=== PATIENT | female | born 1990 | race Caucasian/White ===

== ENCOUNTER 2017-05-26 20:45 | Emergency (ER) | payer BC ==
[2017-05-26 21:00] VITALS: BP 130/58; PULSE 73; RESP 18; TEMP 98
[2017-05-26] MEDS ORDERED: PROPARACAINE 0.5% OPHTH DROPS 15 ML BTL BOTH EYES STA (21:24)
[2017-05-26] MEDS ORDERED: ERYTHROMYCIN 5 MG/GM OPHTH OINT 3.5 GM TUBE BOTH EYES STA (21:25)
--- NOTE | 2017-05-26 21:36 | ED ---
General Adult HPI - General Chief complaint: Eye Problems Stated complaint: Eye drainage Time Seen by Provider: 05/26/17 21:19 Source: patient, RN notes reviewed Mode of arrival: ambulatory Limitations: no limitations - History of Present Illness Initial comments: 26 her old female presents to the emergency department for a chief complaint of bilateral eye runniness. Patient states this has been going on since this morning when she woke up. Patient states her eyes also feel irritated. Patient states her eyes feel watery she also has eye "boogers." Patient does not work with children. Patient does not have kids. Patient has not been exposed to anyone with pinkeye that she knows of. Patient denies visual changes or vision loss besides for some blurriness from the eye drainage. Patient denies any scotomas or sensitivity to light. Patient denies any headache. Patient denies any trauma to the eyes or getting anything in the eyes. - Related Data Previous Rx's Medication Instructions Recorded Erythromycin Ophth Oint [Romycin 1 applic BOTH EYES Q4H 5 Days gm 05/26/17 Ophth Oint] Loratadine [Claritin] 10 mg PO DAILY #20 tab 05/26/17 Allergies Allergy/AdvReac Type Severity Reaction Status Date / Time No Known Allergies Allergy Verified 05/26/17 21:00 Review of Systems ROS Statement: Those systems with pertinent positive or pertinent negative responses have been documented in the HPI. ROS Other: All systems not noted in ROS Statement are negative. Past Medical History Past Medical History: Asthma History of Any Multi-Drug Resistant Organisms: None Reported Past Surgical History: No Surgical Hx Reported Past Psychological History: Anxiety, Depression Smoking Status: Current every day smoker Past Alcohol Use History: Rare Past Drug Use History: None Reported General Exam Limitations: no limitations General appearance: alert Head exam: Present: atraumatic, normocephalic, normal inspection Eye exam: Present: PERRL, EOMI, conjunctival injection (Bilateral erythematous eyes. Patient has clear drainage from the eyes. Patient also has mild exudate draining from the eyes.). Absent: scleral icterus, nystagmus, periorbital swelling, periorbital tenderness Pupils: Present: normal accommodation ENT exam: Present: normal exam, normal oropharynx, mucous membranes moist, TM's normal bilaterally Respiratory exam: Present: normal lung sounds bilaterally. Absent: respiratory distress, wheezes, rales, rhonchi, stridor Cardiovascular Exam: Present: regular rate, normal rhythm, normal heart sounds. Absent: systolic murmur, diastolic murmur, rubs, gallop, clicks Course Vital Signs 05/26/17 20:59 Temperature 98 F Pulse Rate 73 Respiratory 18 Rate Blood Pressure 130/58 O2 Sat by Pulse 98 Oximetry Medical Decision Making - Medical Decision Making 26 her old female says the emergency department for chief complaint of eye irritation. Patient states this has been going on since she woke up this morning. Patient states her eyes have been runny. On examination bilateral eyes appear to be red and draining clear/exudative fluid. Patient denies wearing contacts. Patient denies getting anything in the eyes or any trauma to the eyes. No visual changes besides slight blurriness from the runny eyes. This is likely bacterial conjunctivitis. She will be given erythromycin ointment. Patient states she would like to rule out corneal abrasion because of the irritation. Proparacaine drops were used to numb the eyes. Fluorescein stain was used with the Wood's lamp to rule out corneal abrasions. No abrasions seen. Patient will continue to use erythromycin ointment for 5-7 days to treat the conjunctivitis. She will return to the emergency department if symptoms worsen. She will follow up with primary care or ophthalmology in one to 2 days. Disposition Clinical Impression: Bacterial conjunctivitis Disposition: HOME SELF-CARE Condition: Good Instructions: Conjunctivitis (ED) Additional Instructions: Please use erythromycin ointment for 5-7 days. Please return to the emergency department if symptoms worsen or you begin to have visual changes. Please follow-up with primary care provider or ophthalmology in one to 2 days. Prescriptions: Erythromycin Ophth Oint [Romycin Ophth Oint] 1 applic BOTH EYES Q4H 5 Days gm Loratadine [Claritin] 10 mg PO DAILY #20 tab Referrals: Jacinto Craig DO [Primary Care Provider] - 1-2 days Karmen Hinds MD [STAFF PHYSICIAN] - 1-2 days Time of Disposition: 21:48
== END 2017-05-26 21:57 | disposition home or self-care (01) ==
LOC: EC 20:45
DX: H10.89 Other conjunctivitis (principal); F17.200 Nicotine dependence, unspecified, uncomplicated
CPT/HCPCS: 99282

== ENCOUNTER 2017-07-26 02:28 | Emergency (ER) | payer BC ==
[2017-07-26 02:36] VITALS: RESP 18
--- NOTE | 2017-07-26 03:14 | XR ---
EXAM: XR Right Hand Complete, 3 or More Views CLINICAL HISTORY: Pain TECHNIQUE: Frontal, lateral and oblique views of the right hand. COMPARISON: No relevant prior studies available. FINDINGS: Bones/joints: No acute fracture or malalignment. Soft tissues: Unremarkable. No radiopaque foreign body. IMPRESSION: No acute fracture or malalignment.
--- NOTE | 2017-07-26 03:41 | ED ---
Upper Extremity HPI - General Chief Complaint: Extremity Injury, Upper Stated Complaint: Hand and arm injury Time Seen by Provider: 07/26/17 02:40 Source: patient Mode of arrival: ambulatory Limitations: no limitations - History of Present Illness Initial Comments: 26 year-old female patient presents to the emergency department today complaining of right hand pain. Patient states that 3 weeks ago she punched a wall. States that she has been having pain and swelling over the middle MCP joint. States that it hurts when she makes a fist. States is tender over the joint. She denies any numbness or tingling to the hand or finger. Denies any previous fractures to the hand. Denies any other injuries. Patient denies any headache, neck pain, back pain, chest pain, shortness of breath, dizziness, weakness, abdominal pain, nausea, vomiting, or difficulties with bowel movements or urination. - Related Data Home Medications Medication Instructions Recorded Confirmed ARIPiprazole [Abilify] 5 mg PO 07/26/17 Allergies Allergy/AdvReac Type Severity Reaction Status Date / Time No Known Allergies Allergy Verified 05/26/17 21:00 Review of Systems ROS Statement: Those systems with pertinent positive or pertinent negative responses have been documented in the HPI. ROS Other: All systems not noted in ROS Statement are negative. Past Medical History Past Medical History: Asthma History of Any Multi-Drug Resistant Organisms: None Reported Past Surgical History: No Surgical Hx Reported Past Psychological History: Anxiety, Depression Smoking Status: Current every day smoker Past Alcohol Use History: Occasional Past Drug Use History: None Reported General Exam Limitations: no limitations General appearance: alert, in no apparent distress, other (Some well-developed, well-nourished adult female patient in no acute distress. Vital signs upon presentation are temperature 98.3F, pulse 87, respirations 18, blood pressure 123/83, pulse ox 98% on room air.) Eye exam: Present: normal appearance, PERRL, EOMI. Absent: scleral icterus, conjunctival injection, periorbital swelling ENT exam: Present: normal exam, normal oropharynx, mucous membranes moist Respiratory exam: Present: normal lung sounds bilaterally. Absent: respiratory distress, wheezes, rales, rhonchi, stridor Cardiovascular Exam: Present: regular rate, normal rhythm, normal heart sounds. Absent: systolic murmur, diastolic murmur, rubs, gallop, clicks Extremities exam: Present: full ROM, tenderness (Tenderness over the third MCP joint on the right hand.), normal capillary refill, other (Skin to the right hand is pink, warm, and dry. Cap refills less than 3 seconds. Radial pulses are 2+ and equal bilaterally.). Absent: normal inspection, pedal edema, joint swelling, calf tenderness Neurological exam: Present: alert, oriented X3, CN II-XII intact Psychiatric exam: Present: normal affect, normal mood Skin exam: Present: warm, dry, intact, normal color. Absent: rash Course Vital Signs 07/26/17 07/26/17 02:32 03:48 Temperature 98.3 F 97.8 F Pulse Rate 87 84 Respiratory 18 18 Rate Blood Pressure 123/83 126/79 O2 Sat by Pulse 98 99 Oximetry Medical Decision Making - Medical Decision Making 26 year-old female patient presented to the emergency department today for evaluation of right hand pain after punching a wall 3 weeks ago. Physical examination does reveal some swelling and enlargement of the right third MCP joint. Patient does have full range of motion and good neurovascular status. X -ray was obtained and showed no acute fractures or malalignment. We did discuss possibility of a tendinous injury or joint space abnormality. She is instructed to follow-up with the client technical specialist for further evaluation and possibly further testing. She is instructed to continue taking ibuprofen and Tylenol for pain control. Return parameters discussed in detail. She verbalizes understanding and agrees with this plan. - Radiology Data Radiology results: report reviewed, image reviewed 3 views of the right hand are obtained. Report was reviewed in its entirety. Impression by Dr. Lam shows no acute fracture or malalignment. Disposition Clinical Impression: Hand contusion, Hand sprain Disposition: HOME SELF-CARE Condition: Good Instructions: Contusion in Adults (ED), Hand Sprain (ED) Additional Instructions: Take Tylenol Motrin for pain control. Follow-up with orthopedic physician for reevaluation. Return here immediately for any new, worsening, or concerning symptoms. Is patient prescribed a controlled substance at d/c from ED?: No Referrals: Jacinto Craig DO [Primary Care Provider] - 1-2 days Slick Pino MD [Medical Doctor] - 1-2 days Time of Disposition: 03:41
[2017-07-26 03:49] VITALS: BP 126/79; PULSE 84; TEMP 97.8
== END 2017-07-26 03:49 | disposition home or self-care (01) ==
LOC: EC 02:28
DX: S63.91XA Sprain of unspecified part of right wrist and hand, initial encounter (principal); F32.9 Major depressive disorder, single episode, unspecified; F17.200 Nicotine dependence, unspecified, uncomplicated; Z79.899 Other long term (current) drug therapy; W22.8XXA Striking against or struck by other objects, initial encounter
CPT/HCPCS: 99283

== ENCOUNTER 2017-10-08 02:11 | Emergency (ER) | payer BC ==
[2017-10-08 02:19] VITALS: BP 133/89; PULSE 70; RESP 17; TEMP 98.5
[2017-10-08] MEDS ORDERED: ONDANSETRON 4 MG/2 ML VIAL IVP STA (02:41)
[2017-10-08] MEDS ORDERED: MORPHINE SULFATE 4 MG/ML SYRINGE IV STA (02:41)
[2017-10-08] MEDS ORDERED: SODIUM CHLORIDE 0.9% 1,000 ML IV STA (02:41)
[2017-10-08 02:53] LABS: Basophils # (A) 0.1 k/uL (0-0.2); Basophils % (A) 1 %; Eosinophils # (A) 0.5 k/uL (0-0.7); Eosinophils % (A) 5 %; HCT 45.3 % (34.0-46.0); HGB 15.2 gm/dL (11.4-16.0); Lymphocytes # (A) 2.9 k/uL (1.0-4.8); Lymphocytes % (A) 30 %; MCHC 33.4 g/dL (31.0-37.0); MCV 89.8 fL (80.0-100.0); Mean Platelet Volume 6.7; Monocytes # (A) 0.7 k/uL (0-1.0); Monocytes % (A) 8 %; Neutrophils # (A) 5.2 k/uL (1.3-7.7); Neutrophils % (A) 54 %; Platelet Count 269 k/uL (150-450); RBC 5.04 m/uL (3.80-5.40); RDW 12.6 % (11.5-15.5); WBC 9.5 k/uL (3.8-10.6)
[2017-10-08 02:55] LABS: Appearance,Urine Clear (Clear); Bilirubin,Urine Negative (Negative); Blood,Urine Negative (Negative); Color,Urine Yellow; Glucose,Urine (UA) Negative (Negative); Ketones,Urine Negative (Negative); Leukocyte Esterase,Urine Negative (Negative); Nitrite,Urine Negative (Negative); Protein,Urine Negative (Negative); Specific Gravity,Urine 1.028 (1.001-1.035); Urobilinogen,Urine <2.0 mg/dL (<2.0)
[2017-10-08 03:04] LABS: ALT 23 U/L (9-52); AST 16 U/L (14-36); Albumin 4.2 g/dL (3.5-5.0); Alkaline Phosphatase 58 U/L (38-126); Amylase 62 U/L (30-110); Anion Gap 10 mmol/L; Blood Urea Nitrogen 16 mg/dL (7-17); Calcium 9.1 mg/dL (8.4-10.2); Carbon Dioxide 23 mmol/L (22-30); Chloride 107 mmol/L (98-107); Glucose 96 mg/dL (74-99); Lipase 120 U/L (23-300); Potassium 4.3 mmol/L (3.5-5.1); Sodium 140 mmol/L (137-145); Total Bilirubin 0.2 mg/dL (0.2-1.3); Total Protein 6.7 g/dL (6.3-8.2)
--- NOTE | 2017-10-08 03:04 | ED ---
Abdominal Pain HPI - General Chief Complaint: Abdominal Pain Stated Complaint: Abdominal Pain Time Seen by Provider: 10/08/17 02:32 Source: patient, RN notes reviewed Mode of arrival: ambulatory Limitations: no limitations - History of Present Illness Initial Comments: This is a 27-year-old female who presents to the emergency department with chief complaint of abdominal pain. Patient reports having lower abdominal cramping earlier today but she thought she was starting her period. She states that she took Midol but this did not relieve the cramping. She states then that around 9 PM the cramping localized to the epigastric region. Patient reports having significant cramp-like pain occurring approximately every 5 minutes. She states while experiencing the pain, she feels nauseous. She also reports having diarrhea. Denies any vomiting. Denies fevers or chills. Denies chest pain or shortness of breath. Denies any previous abdominal surgeries. - Related Data Home Medications Medication Instructions Recorded Confirmed ARIPiprazole [Abilify] 5 mg PO 07/26/17 Previous Rx's Medication Instructions Recorded Dicyclomine [Bentyl] 20 mg PO QID #20 tablet 10/08/17 Allergies Allergy/AdvReac Type Severity Reaction Status Date / Time No Known Allergies Allergy Verified 05/26/17 21:00 Review of Systems ROS Statement: Those systems with pertinent positive or pertinent negative responses have been documented in the HPI. ROS Other: All systems not noted in ROS Statement are negative. Past Medical History Past Medical History: Asthma History of Any Multi-Drug Resistant Organisms: None Reported Past Surgical History: No Surgical Hx Reported Past Psychological History: Anxiety, Depression Smoking Status: Current every day smoker Past Alcohol Use History: Occasional Past Drug Use History: None Reported General Exam - General Exam Comments Initial Comments: General: Awake and alert, well-developed; in no apparent distress. HEENT: Head atraumatic, normocephalic. Pupils are equal, round and reactive to light. Extraocular movements intact. Oropharynx moist without erythema or exudate. Neck: Supple. Normal ROM. Cardiovascular: Regular rate and rhythm. No murmurs, rubs or gallops. Chest symmetrical. Respiratory: Lungs clear to auscultation bilaterally. No wheezes, rales or rhonchi. Normal respiratory effort with no use of accessory muscles. Abdomen: Soft, non-distended. Tenderness on palpation of epigastrium with voluntary guarding. No rigidity or rebound. Normal bowel sounds in all 4 quadrants. Musculoskeletal: Normal ROM, no tenderness bilateral upper and lower extremities. Ambulating normally. Skin: Berk[place], warm and dry without rashes or lesions. Neurological: Alert and oriented x3. CN II-XII grossly intact. Speech is fluent and answers are appropriate. No focal neuro deficits. Psychiatric: Normal mood and affect. No overt signs of depression or anxiety noted. Limitations: no limitations Course Vital Signs 10/08/17 02:16 Temperature 98.5 F Pulse Rate 70 Respiratory 17 Rate Blood Pressure 133/89 O2 Sat by Pulse 100 Oximetry Medical Decision Making - Medical Decision Making This is a 27-year-old female who presents to the emergency department with chief complaint of abdominal pain. Patient reports intermittent episodes of cramp-like epigastric pain. On physical examination, there is tenderness to the epigastrium. Patient given IV fluids, Zofran and morphine in the emergency department. She continued to complain of pain so was given Bentyl and a GI cocktail. CBC, CMP and UA are completely unremarkable. On reassessment, patient states that her pain has significantly improved. She states that she is afraid to go home and experience the pain again so an ultrasound was recommended. Patient refused, stating that she would rather go home, get some sleep and return if any worsening of symptoms. She states "I'll see how I feel. " Patient will be provided with a prescription for Bentyl. I did recommend following up with her primary care provider within 1-2 days. Her vital signs have been stable and she is in no acute distress. She is in agreement and voices understanding. All questions were answered. She will be discharged home at this time. Disposition Clinical Impression: Abdominal pain Disposition: HOME SELF-CARE Condition: Good Instructions: Abdominal Pain (ED) Additional Instructions: Please take medications as prescribed. Please follow up with primary care provider within 1-2 days. Return to emergency department if symptoms should worsen or any concerns arise. Prescriptions: Dicyclomine [Bentyl] 20 mg PO QID #20 tablet Is patient prescribed a controlled substance at d/c from ED?: No Referrals: Jacinto Craig DO [Primary Care Provider] - 1-2 days Time of Disposition: 04:06
[2017-10-08] MEDS ORDERED: DICYCLOMINE 20 MG TAB PO STA (03:13)
[2017-10-08] MEDS ORDERED: MAG HYDROX/AL HYDROX/SIMETH 30 ML, HYOSCYAMINE ELIXIR 10 ML, CIMETIDINE HCL 300 MG, LID... PO STA ×4 (03:13)
[2017-10-08 03:20] LABS: INR 1.1 (<1.2); Partial Thromboplastin Time 25.7 sec (22.0-30.0); Prothrombin Time 10.4 sec (9.0-12.0)
== END 2017-10-08 04:16 | disposition home or self-care (01) ==
LOC: EC 02:11
DX: R10.30 Lower abdominal pain, unspecified (principal); R10.13 Epigastric pain; R11.0 Nausea; R19.7 Diarrhea, unspecified; F32.9 Major depressive disorder, single episode, unspecified; F17.200 Nicotine dependence, unspecified, uncomplicated; Z79.899 Other long term (current) drug therapy
CPT/HCPCS: 36415; 80053; 82150; 83690; 85025; 85610; 85730; 81003; 81025; 99284; 96374; 96375; 96361; J2270; J2405

== ENCOUNTER 2017-10-08 08:40 | Emergency (ER) | payer BC ==
[2017-10-08 08:47] VITALS: RESP 16
[2017-10-08] MEDS ORDERED: ONDANSETRON 4 MG/2 ML VIAL IVP STA (08:54)
[2017-10-08] MEDS ORDERED: KETOROLAC 30 MG/ML 1 ML VIAL IVP STA (08:54)
[2017-10-08] MEDS ORDERED: SODIUM CHLORIDE 0.9% 1,000 ML IV ONE (08:54)
[2017-10-08] MEDS ORDERED: KETOROLAC 60 MG/2 ML VIAL IM STA (09:13)
[2017-10-08] MEDS ORDERED: ONDANSETRON ODT 4 MG TAB PO STA (09:14)
--- NOTE | 2017-10-08 09:20 | ED ---
Abdominal Pain HPI - General Chief Complaint: Abdominal Pain Stated Complaint: abd pain Time Seen by Provider: 10/08/17 08:51 Source: patient, RN notes reviewed Mode of arrival: ambulatory Limitations: no limitations - History of Present Illness Initial Comments: 27-year-old female presents emergency Department with chief complaint of abdominal pain. Patient was seen in emergency department last night states that she felt better went home but she started having worsening pain in her epigastric region and had an episode of vomiting. She still has diarrhea which she did have last night. Patient was offered an ultrasound though she states that she felt better and decided to leave. Patient was advised to come back if worsening pain for ultrasound. Patient denies any fevers or chills. She has not ate anything since being discharged from the emergency Department. The patient had no prior abdominal surgeries. Denies any dysuria, hematuria. - Related Data Home Medications Medication Instructions Recorded Confirmed ARIPiprazole [Abilify] 5 mg PO DAILY 07/26/17 10/08/17 Albuterol Sulfate [Proair Hfa] 2 puff INHALATION RT-Q6H PRN 10/08/17 10/08/17 Previous Rx's Medication Instructions Recorded Dicyclomine [Bentyl] 20 mg PO QID #20 tablet 10/08/17 Omeprazole 40 mg PO DAILY #14 capsule. 10/08/17 Ondansetron Odt [Zofran Odt] 4 mg PO Q8HR PRN #10 tab 10/08/17 Allergies Allergy/AdvReac Type Severity Reaction Status Date / Time No Known Allergies Allergy Verified 10/08/17 09:36 Review of Systems ROS Statement: Those systems with pertinent positive or pertinent negative responses have been documented in the HPI. ROS Other: All systems not noted in ROS Statement are negative. Past Medical History Past Medical History: Asthma History of Any Multi-Drug Resistant Organisms: None Reported Past Surgical History: No Surgical Hx Reported Past Psychological History: Anxiety, Depression Smoking Status: Current every day smoker Past Alcohol Use History: Occasional Past Drug Use History: None Reported General Exam Limitations: no limitations General appearance: alert, in no apparent distress Head exam: Present: atraumatic, normocephalic, normal inspection Respiratory exam: Present: normal lung sounds bilaterally. Absent: respiratory distress, wheezes, rales, rhonchi, stridor Cardiovascular Exam: Present: regular rate, normal rhythm, normal heart sounds. Absent: systolic murmur, diastolic murmur, rubs, gallop, clicks GI/Abdominal exam: Present: soft, tenderness (Mild epigastric), normal bowel sounds. Absent: distended, guarding, rebound, rigid Back exam: Absent: CVA tenderness (R), CVA tenderness (L) Skin exam: Present: warm, dry, intact, normal color. Absent: rash Course Vital Signs 10/08/17 08:44 Temperature 98.3 F Pulse Rate 66 Respiratory 16 Rate Blood Pressure 111/82 O2 Sat by Pulse 98 Oximetry - Reevaluation(s) Reevaluation #1: 10/08/17 09:19 Patient refuses IV, lab work urinalysis states that she just had it a few hours ago. Medical Decision Making - Medical Decision Making 27-year-old female presents for repeat visit for abdominal pain. Patient ultrasound which was negative for acute abnormality. She did have relief from GI cocktail prior. The symptoms are most likely related to gastritis, gastric enteritis as she's been ignoring GERD symptoms for over a month. Patient states that she has vomited almost every morning. Patient was started on omeprazole 40 mg in Zofran. Patient will follow-up with GI return parameters were discussed. Disposition Clinical Impression: Gastritis, Diarrhea Disposition: HOME SELF-CARE Condition: Stable Instructions: Gastritis (ED), Diet for Stomach Ulcers and Gastritis (ED) Additional Instructions: Please return to the Emergency Department if symptoms worsen or any other concerns. Prescriptions: Omeprazole 40 mg PO DAILY #14 capsule. Ondansetron Odt [Zofran Odt] 4 mg PO Q8HR PRN #10 tab PRN Reason: Nausea Is patient prescribed a controlled substance at d/c from ED?: No Referrals: Jacinto Craig DO [Primary Care Provider] - 1-2 days Georgie Herrera MD [STAFF PHYSICIAN] - 1-2 days Time of Disposition: 10:34
--- NOTE | 2017-10-08 10:19 | US ---
EXAMINATION TYPE: US gallbladder DATE OF EXAM: 10/08/2017 COMPARISON: US 2012. CT abdomen and pelvis December 31, 2010. CLINICAL HISTORY: Pain. Abdomen pain and N/V x 2 days EXAM MEASUREMENTS: Liver Length: 16.9 cm Gallbladder Wall: 0.1 cm CBD: 0.3 cm Right Kidney: 9.2 x 4.1 x 4.6 cm Pancreas: visualized portions wnl, tail limited by overlying midline bowel gas Liver: wnl Gallbladder: wnl Evidence for sonographic Carpenter's sign: yes CBD: visualized portions wnl, limited by overlying bowel gas Right Kidney: dilated renal pelvis IMPRESSION: No shadowing mobile gallstones or secondary ultrasound evidence for acute cholecystitis.
[2017-10-08] MEDS ORDERED: MAG HYDROX/AL HYDROX/SIMETH 30 ML, HYOSCYAMINE ELIXIR 10 ML, CIMETIDINE HCL 300 MG, LID... PO STA ×4 (10:31)
[2017-10-08 11:09] VITALS: BP 112/80; PULSE 67; TEMP 97.9
== END 2017-10-08 11:08 | disposition home or self-care (01) ==
LOC: EC 08:40
DX: K29.70 Gastritis, unspecified, without bleeding (principal); R19.7 Diarrhea, unspecified; J45.909 Unspecified asthma, uncomplicated; F32.9 Major depressive disorder, single episode, unspecified; F17.200 Nicotine dependence, unspecified, uncomplicated; Z79.899 Other long term (current) drug therapy; Z53.20 Procedure and treatment not carried out because of patient's decision for unspecified reasons
CPT/HCPCS: 76705; 99284; 96372; J1885

== ENCOUNTER 2017-10-15 14:29 | Emergency (ER) | payer BC ==
[2017-10-15 14:39] VITALS: TEMP 98.3
[2017-10-15] MEDS ORDERED: MAG HYDROX/AL HYDROX/SIMETH 30 ML, HYOSCYAMINE ELIXIR 10 ML, CIMETIDINE HCL 300 MG, LID... PO STA ×4 (15:25)
[2017-10-15] MEDS ORDERED: SODIUM CHLORIDE 0.9% 1,000 ML IV STA (15:25)
[2017-10-15 15:42] LABS: Basophils % (A) 0 %; Eosinophils # (A) 0.3 k/uL (0-0.7); Eosinophils % (A) 4 %; HCT 42.6 % (34.0-46.0); HGB 14.4 gm/dL (11.4-16.0); Lymphocytes # (A) 2.1 k/uL (1.0-4.8); Lymphocytes % (A) 23 %; MCHC 33.9 g/dL (31.0-37.0); MCV 91.5 fL (80.0-100.0); Mean Platelet Volume 7.6; Monocytes # (A) 0.6 k/uL (0-1.0); Monocytes % (A) 7 %; Neutrophils # (A) 6.3 k/uL (1.3-7.7); Neutrophils % (A) 66 %; Platelet Count 254 k/uL (150-450); RBC 4.66 m/uL (3.80-5.40); RDW 12.5 % (11.5-15.5); WBC 9.5 k/uL (3.8-10.6)
--- NOTE | 2017-10-15 15:51 | XR ---
EXAMINATION TYPE: XR KUB DATE OF EXAM: 10/15/2017 COMPARISON: NONE HISTORY: Pain TECHNIQUE: Single supine KUB image of the abdomen is obtained FINDINGS: Small bowel demonstrates no evidence for dilatation or air fluid levels. Gas and fecal material is seen in non-distended colon. No convincing evidence for pneumoperitoneum. No unusual calcifications. The lung bases are clear. The osseous structures are intact. IMPRESSION: 1. Overall nonobstructive bowel gas pattern.
[2017-10-15 15:57] LABS: ALT 29 U/L (9-52); AST 17 U/L (14-36); Albumin 4.3 g/dL (3.5-5.0); Alkaline Phosphatase 56 U/L (38-126); Anion Gap 10 mmol/L; Blood Urea Nitrogen 10 mg/dL (7-17); Calcium 9.1 mg/dL (8.4-10.2); Carbon Dioxide 22 mmol/L (22-30); Chloride 110 mmol/L (98-107); Glucose 84 mg/dL (74-99); Lipase 66 U/L (23-300); Potassium 4.5 mmol/L (3.5-5.1); Sodium 142 mmol/L (137-145); Total Bilirubin 0.3 mg/dL (0.2-1.3); Total Protein 6.8 g/dL (6.3-8.2)
--- NOTE | 2017-10-15 16:13 | ED ---
General Adult HPI - General Chief complaint: Abdominal Pain Stated complaint: abdominal pain-revisit Time Seen by Provider: 10/15/17 15:08 Source: patient Mode of arrival: ambulatory Limitations: no limitations - History of Present Illness Initial comments: Shelley is a 27-year-old female who presents to the emergency department for evaluation of severe abdominal pain. Patient reports that she was seen 2 times last week and diagnosed with acid reflux, she reports that she has been compliant with the medications given but continues to have abdominal pain. Patient reports that her pain improved somewhat for a couple of days but today she woke up and around 10 AM developed a severe burning epigastric abdominal pain. She reports that she drank a cup of milk which didn't improve her symptoms. She then went to work and tried to drink coffee however she was unable to tolerate it. She reports that since that time she's had persistent burning epigastric pain that radiates throughout her entire abdomen. She reports the pain is 10 out of 10 in intensity and associated with nausea but no vomiting. She reports normal bowel movements. Denies any recent fevers, chills, chest pain or palpitations. Patient has no history of any GI pathology and is never been seen by GI in the past. - Related Data Home Medications Medication Instructions Recorded Confirmed ARIPiprazole [Abilify] 5 mg PO DAILY 07/26/17 10/08/17 Albuterol Sulfate [Proair Hfa] 2 puff INHALATION RT-Q6H PRN 10/08/17 10/08/17 Previous Rx's Medication Instructions Recorded Dicyclomine [Bentyl] 20 mg PO QID #20 tablet 10/08/17 Omeprazole 40 mg PO DAILY #14 capsule. 10/08/17 Ondansetron Odt [Zofran Odt] 4 mg PO Q8HR PRN #10 tab 10/08/17 Allergies Allergy/AdvReac Type Severity Reaction Status Date / Time No Known Allergies Allergy Verified 10/15/17 14:39 Review of Systems ROS Statement: Those systems with pertinent positive or pertinent negative responses have been documented in the HPI. ROS Other: All systems not noted in ROS Statement are negative. Past Medical History Past Medical History: Asthma History of Any Multi-Drug Resistant Organisms: None Reported Past Surgical History: No Surgical Hx Reported Past Psychological History: Anxiety, Depression Smoking Status: Current every day smoker Past Alcohol Use History: Occasional Past Drug Use History: None Reported General Exam - General Exam Comments Initial Comments: GENERAL: Patient is well-developed and well-nourished. Patient is nontoxic and well- hydrated. Patient is rolling around on the bed clutching her abdomen, upon reevaluation the patient is on the bed on all fours and 4. HENT: Normocephalic, Atraumatic. Neck is soft and supple. No significant lymphadenopathy is noted. Oropharynx is clear. Moist mucous membranes. Neck has full range of motion without eliciting any pain. EYES: The sclera were anicteric and conjunctiva were pink and moist. Extraocular movements were intact and pupils were equal round and reactive to light. Eyelids were unremarkable. PULMONARY: Unlabored respirations. Good breath sounds bilaterally. No audible rales rhonchi or wheezing was noted. CARDIOVASCULAR: There is a regular rate and rhythm without any murmurs gallops or rubs. ABDOMEN: Soft with normal bowel sounds. There is no rebound, no guarding, abdomen is not rigid. However patient reports significant tenderness, is tenderness is not worse with palpation. SKIN: Skin is clear with no lesions or rashes and otherwise unremarkable. NEUROLOGIC: Patient is alert and oriented x3. Cranial nerves II through XII are grossly intact. Motor and sensory are also intact. Normal speech, volume and content. Symmetrical smile. MUSCULOSKELETAL: Normal extremities with adequate strength and full range of motion. No lower extremity swelling or edema. No calf tenderness. LYMPHATICS: No significant lymphadenopathy is noted PSYCHIATRIC: Agitated Limitations: no limitations Limitations: no limitations Course Vital Signs 10/15/17 10/15/17 14:37 18:39 Temperature 98.3 F Pulse Rate 58 L 62 Respiratory 20 18 Rate Blood Pressure 135/84 111/69 O2 Sat by Pulse 99 98 Oximetry Medical Decision Making - Medical Decision Making The patient was seen and evaluated, history is obtained from patient and review of medical record. Patient was seen last week for abdominal pain, returns today for worsening abdominal pain Pain is epigastric in nature, patient does report drinking alcohol last week prior to her evaluation here, however states she has not had any alcohol since that time Labs and KUB x-ray were ordered GI cocktail was ordered and given Labs and x-ray were unremarkable I return to the patient's room, patient was on all fours in the bed, stating that her pain is unbearable, she continues to rock back and forth. I advised the patient that we found nothing on her workup at that if she is unsatisfied with this we can obtain a computed tomography scan to further evaluate. I did advise the patient that if she is having gastritis or ulcer pain this will not be visible on computed tomography scan. Patient not comfortable with plan for discharge home with supportive care, I will obtain a computed tomography scan. Pepcid was ordered Patient was reevaluated after Pepcid was resting more comfortably, her significant other was at bedside to help calm her. Computed tomography scan with no acute pathology results were discussed with the patient. Patient will be discharged home with a referral to gastroenterology for further management. Pertaining care were answered the best my ability and the patient was discharged home in stable condition. - Lab Data Result diagrams: 10/15/17 14:51 10/15/17 14:51 Lab Results 10/15/17 10/15/17 10/15/17 Range/Units 14:51 14:51 17:00 WBC 9.5 (3.8-10.6) k/uL RBC 4.66 (3.80-5.40) m/uL Hgb 14.4 (11.4-16.0) gm/dL Hct 42.6 (34.0-46.0) % MCV 91.5 (80.0-100.0) fL MCH 31.0 (25.0-35.0) pg MCHC 33.9 (31.0-37.0) g/dL RDW 12.5 (11.5-15.5) % Plt Count 254 (150-450) k/uL Neutrophils % 66 % Lymphocytes % 23 % Monocytes % 7 % Eosinophils % 4 % Basophils % 0 % Neutrophils # 6.3 (1.3-7.7) k/uL Lymphocytes # 2.1 (1.0-4.8) k/uL Monocytes # 0.6 (0-1.0) k/uL Eosinophils # 0.3 (0-0.7) k/uL Basophils # 0.0 (0-0.2) k/uL Sodium 142 (137-145) mmol/L Potassium 4.5 (3.5-5.1) mmol/L Chloride 110 H (98-107) mmol/L Carbon Dioxide 22 (22-30) mmol/L Anion Gap 10 mmol/L BUN 10 (7-17) mg/dL Creatinine 0.70 (0.52-1.04) mg/dL Est GFR (CKD-EPI)AfAm >90 (>60 ml/min/1.73 sqM) Est GFR (CKD-EPI)NonAf >90 (>60 ml/min/1.73 sqM) Glucose 84 (74-99) mg/dL Calcium 9.1 (8.4-10.2) mg/dL Total Bilirubin 0.3 (0.2-1.3) mg/dL AST 17 (14-36) U/L ALT 29 (9-52) U/L Alkaline Phosphatase 56 (38-126) U/L Total Protein 6.8 (6.3-8.2) g/dL Albumin 4.3 (3.5-5.0) g/dL Lipase 66 (23-300) U/L Urine Color Urine Appearance (Clear) Urine pH (5.0-8.0) Ur Specific [place] (1.001-1.035) Urine Protein (Negative) Urine Glucose (UA) (Negative) Urine Ketones (Negative) Urine Blood (Negative) Urine Nitrite (Negative) Urine Bilirubin (Negative) Urine Urobilinogen (<2.0) mg/dL Ur Leukocyte Esterase (Negative) Urine RBC (0-5) /hpf Urine WBC (0-5) /hpf Ur Squamous Epith Cells (0-4) /hpf Urine HCG, Qual Not Detected (Not Detectd) 10/15/17 Range/Units 17:00 WBC (3.8-10.6) k/uL RBC (3.80-5.40) m/uL Hgb (11.4-16.0) gm/dL Hct (34.0-46.0) % MCV (80.0-100.0) fL MCH (25.0-35.0) pg MCHC (31.0-37.0) g/dL RDW (11.5-15.5) % Plt Count (150-450) k/uL Neutrophils % % Lymphocytes % % Monocytes % % Eosinophils % % Basophils % % Neutrophils # (1.3-7.7) k/uL Lymphocytes # (1.0-4.8) k/uL Monocytes # (0-1.0) k/uL Eosinophils # (0-0.7) k/uL Basophils # (0-0.2) k/uL Sodium (137-145) mmol/L Potassium (3.5-5.1) mmol/L Chloride (98-107) mmol/L Carbon Dioxide (22-30) mmol/L Anion Gap mmol/L BUN (7-17) mg/dL Creatinine (0.52-1.04) mg/dL Est GFR (CKD-EPI)AfAm (>60 ml/min/1.73 sqM) Est GFR (CKD-EPI)NonAf (>60 ml/min/1.73 sqM) Glucose (74-99) mg/dL Calcium (8.4-10.2) mg/dL Total Bilirubin (0.2-1.3) mg/dL AST (14-36) U/L ALT (9-52) U/L Alkaline Phosphatase (38-126) U/L Total Protein (6.3-8.2) g/dL Albumin (3.5-5.0) g/dL Lipase (23-300) U/L Urine Color Colorless Urine Appearance Clear (Clear) Urine pH 7.5 (5.0-8.0) Ur Specific [place] 1.010 (1.001-1.035) Urine Protein Negative (Negative) Urine Glucose (UA) Negative (Negative) Urine Ketones Negative (Negative) Urine Blood Trace H (Negative) Urine Nitrite Negative (Negative) Urine Bilirubin Negative (Negative) Urine Urobilinogen <2.0 (<2.0) mg/dL Ur Leukocyte Esterase Negative (Negative) Urine RBC <1 (0-5) /hpf Urine WBC <1 (0-5) /hpf Ur Squamous Epith Cells <1 (0-4) /hpf Urine HCG, Qual (Not Detectd) Disposition Clinical Impression: Abdominal pain Disposition: HOME SELF-CARE Condition: Stable Instructions: Abdominal Pain (ED) Is patient prescribed a controlled substance at d/c from ED?: No Referrals: Jacinto Craig DO [Primary Care Provider] - 1-2 days Jonny Mac MD [STAFF PHYSICIAN] - 1-2 days Time of Disposition: 19:29
[2017-10-15] MEDS ORDERED: IOPAMIDOL-300 CONTRAST 30 ML VIAL (ORAL USE) PO PRN (16:34)
[2017-10-15] MEDS ORDERED: FAMOTIDINE 20 MG/2 ML VIAL IV STA (16:50)
--- NOTE | 2017-10-15 18:29 | CT ---
EXAMINATION TYPE: CT abdomen pelvis w con DATE OF EXAM: 10/15/2017 COMPARISON: 12/31/2010 HISTORY: Pain CT DLP: 1188 mGycm Automated exposure control for dose reduction was used. TECHNIQUE: Helical acquisition of images was performed from the lung bases through the pelvis. CONTRAST: Performed with Oral Contrast and with IV Contrast, patient injected with 100 mL of Isovue 300. FINDINGS: Lung bases are clear. There is no pleural effusion. Heart size is normal. Liver spleen pancreas gallbladder appear normal. Bile ducts are not dilated. There is no adrenal mass. Kidneys show satisfactory contrast opacification. There is no hydronephrosi s. Appendix appears normal. Appendix measures 6 to 7 mm. There is no retroperitoneal adenopathy. Ther e is no ascites. I see no intestinal wall thickening. There are no dilated loops. Bladder distends sm oothly. Uterus is retroverted. There is no pelvic mass. There is no free fluid in the pelvis. The lum bar spine appears intact. IMPRESSION: NORMAL APPENDIX. NO SIGN OF ACUTE ABDOMEN AND PELVIS. NEGATIVE EXAM. NO ADVERSE CHANGE COMPARED TO OL D EXAM.
[2017-10-15 18:40] VITALS: BP 111/69; PULSE 62; RESP 18
[2017-10-15 18:51] LABS: Appearance,Urine Clear (Clear); Bilirubin,Urine Negative (Negative); Blood,Urine Trace (Negative); Color,Urine Colorless; Glucose,Urine (UA) Negative (Negative); Ketones,Urine Negative (Negative); Leukocyte Esterase,Urine Negative (Negative); Nitrite,Urine Negative (Negative); PH, Urine 7.5 (5.0-8.0); Protein,Urine Negative (Negative); RBC,Urine <1 /hpf (0-5); Squamous Epithelial Cell,Urine <1 /hpf (0-4); Urobilinogen,Urine <2.0 mg/dL (<2.0); WBC,Urine <1 /hpf (0-5)
== END 2017-10-15 19:54 | disposition home or self-care (01) ==
LOC: EC 14:29
DX: R10.13 Epigastric pain (principal); R11.0 Nausea; J45.909 Unspecified asthma, uncomplicated; F32.9 Major depressive disorder, single episode, unspecified; F17.200 Nicotine dependence, unspecified, uncomplicated; Z79.899 Other long term (current) drug therapy
CPT/HCPCS: 36415; 80053; 83690; 85025; 81001; 81025; 74018; 74177; 99284; 96374; 96361 ×2; Q9967

== ENCOUNTER 2017-10-18 20:58 | Emergency (ER) | payer BC ==
[2017-10-18 21:14] VITALS: RESP 16; TEMP 98.9
[2017-10-18] MEDS ORDERED: DICYCLOMINE 20 MG TAB PO STA (21:55)
--- NOTE | 2017-10-18 22:43 | ED ---
Psych HPI - General Source: patient, police Mode of arrival: ambulatory - History of Present Illness MD Complaint: suicidal ideation -: hour(s) Associated Psychiatric Symptoms: suicidal ideation History of same: No Quality: intermittent Improves With: none Worsens With: none Context: significant life stressor Associated Symptoms: denies other symptoms <LexusRomero - Last Filed: 10/18/17 22:43> <Flor Stock - Last Filed: 10/19/17 01:56> - General Chief Complaint: Psychiatric Symptoms Stated Complaint: Suicidal Time Seen by Provider: 10/18/17 21:15 - History of Present Illness Initial Comments: This patient is 27-year-old woman brought to be evaluated after making suicidal statements at home. The patient states that she had been involved in an argument with her significant other. She does admit to making suicidal statements, namely that she would overdose on ibuprofen. She states that she was just angry and was making statements. Patient denies any suicidal intent. She is grecia for safety now. The patient states that she does see a counselor through [facility] and that she does have an appointment 5 days from now. She is compliant with her treatment there. (Romero Alberts) - Related Data Home Medications Medication Instructions Recorded Confirmed ARIPiprazole [Abilify] 5 mg PO DAILY 07/26/17 10/18/17 Albuterol Sulfate [Proair Hfa] 2 puff INHALATION RT-Q6H PRN 10/08/17 10/18/17 Previous Rx's Medication Instructions Recorded Dicyclomine [Bentyl] 20 mg PO QID #20 tablet 10/08/17 Omeprazole 40 mg PO DAILY #14 capsule. 10/08/17 Ondansetron Odt [Zofran Odt] 4 mg PO Q8HR PRN #10 tab 10/08/17 Dicyclomine [Bentyl] 20 mg PO QID #30 tablet 10/19/17 Allergies Allergy/AdvReac Type Severity Reaction Status Date / Time No Known Allergies Allergy Verified 10/18/17 21:36 Review of Systems ROS Other: All systems not noted in ROS Statement are negative. Constitutional: Denies: fever, chills Respiratory: Denies: cough, dyspnea Cardiovascular: Denies: chest pain, palpitations Gastrointestinal: Reports: abdominal pain (Patient is been having some intermittent abdominal pains and states that she is to go for an upper endoscopy related to this). Denies: vomiting, diarrhea, constipation, melena, hematochezia Genitourinary: Denies: dysuria, hematuria, abnormal menses Musculoskeletal: Denies: back pain Skin: Denies: rash Neurological: Denies: headache, weakness, numbness Psychiatric: Reports: depression, suicidal thoughts. Denies: anxiety, auditory hallucinations, visual hallucinations, homicidal thoughts <LexusRomero - Last Filed: 10/18/17 22:43> ROS Other: All systems not noted in ROS Statement are negative. <Flor Stock Kait - Last Filed: 10/19/17 01:56> ROS Statement: Those systems with pertinent positive or pertinent negative responses have been documented in the HPI. Past Medical History Past Medical History: Asthma History of Any Multi-Drug Resistant Organisms: None Reported Past Surgical History: No Surgical Hx Reported Past Psychological History: Anxiety, Depression Smoking Status: Current every day smoker Past Alcohol Use History: Occasional Past Drug Use History: None Reported <LexusRomero - Last Filed: 10/18/17 22:43> General Exam Limitations: no limitations General appearance: alert, in no apparent distress Head exam: Present: atraumatic, normocephalic Eye exam: Present: normal appearance. Absent: scleral icterus, conjunctival injection ENT exam: Present: normal oropharynx, mucous membranes moist Neck exam: Present: normal inspection Respiratory exam: Present: normal lung sounds bilaterally. Absent: respiratory distress, wheezes, rales, rhonchi, stridor Cardiovascular Exam: Present: regular rate, normal rhythm, normal heart sounds. Absent: systolic murmur, diastolic murmur, rubs, gallop GI/Abdominal exam: Present: soft. Absent: distended, tenderness, guarding, rebound, rigid Extremities exam: Present: normal inspection, normal capillary refill. Absent: pedal edema, calf tenderness Back exam: Present: normal inspection. Absent: CVA tenderness (R), CVA tenderness (L) Neurological exam: Present: alert Psychiatric exam: Present: normal affect, suicidal ideation. Absent: depressed , agitated, anxious, flat affect, manic, homicidal ideation Skin exam: Present: warm, dry, intact, normal color. Absent: rash <Romero Alberts - Last Filed: 10/18/17 22:43> Vital Signs 10/18/17 10/19/17 21:10 00:42 Temperature 98.9 F Pulse Rate 89 56 L Respiratory 16 16 Rate Blood Pressure 122/70 112/55 O2 Sat by Pulse 98 98 Oximetry Medical Decision Making <Romero Alberts - Last Filed: 10/18/17 22:43> <Flor Stock - Last Filed: 10/19/17 01:56> - Medical Decision Making 27-year-old female patient presented to the emergency department today for evaluation on petition from [facility] after she was involved in a argument with her significant other. Patient states at the time she did verbalize suicidal ideation however she is not feeling suicidal now. Patient states she does have an appointment 5 days with a counselor. She was seen and evaluated by emergency psychiatric services, it is felt she does not meet inpatient criteria at this time and would benefit more from outpatient therapy. Patient is instructed to keep her appointment with a counselor. The patient also requested refill of her Bentyl. Return parameters were discussed in detail. She verbalizes understanding and agrees with this plan. (Flor Stock) Disposition <Romero Alberts - Last Filed: 10/18/17 22:43> Is patient prescribed a controlled substance at d/c from ED?: No Time of Disposition: 00:27 <Flor Stock - Last Filed: 10/19/17 01:56> Clinical Impression: Depression, Suicidal ideation Disposition: HOME SELF-CARE Condition: Good Instructions: Depression (ED), Suicide Prevention (ED) Additional Instructions: Take medication as directed. Follow up with counseling as you have planned. Return here immediately for any new, worsening, or concerning symptoms. Prescriptions: Dicyclomine [Bentyl] 20 mg PO QID #30 tablet Referrals: Jacinto Craig DO [Primary Care Provider] - 1-2 days
[2017-10-19 00:43] VITALS: BP 112/55; PULSE 56
== END 2017-10-19 00:42 | disposition home or self-care (01) ==
LOC: EC 20:58
DX: R45.851 Suicidal ideations (principal); F32.9 Major depressive disorder, single episode, unspecified; J45.909 Unspecified asthma, uncomplicated; F41.9 Anxiety disorder, unspecified; F17.200 Nicotine dependence, unspecified, uncomplicated; Z79.899 Other long term (current) drug therapy
CPT/HCPCS: 99285

== ENCOUNTER 2018-01-14 14:50 | Emergency (ER) | payer BC ==
[2018-01-14 15:26] VITALS: RESP 18
[2018-01-14 16:53] LABS: Basophils % (A) 0 %; Eosinophils # (A) 0.3 k/uL (0-0.7); Eosinophils % (A) 4 %; HCT 47.8 % (34.0-46.0); HGB 15.3 gm/dL (11.4-16.0); Lymphocytes # (A) 2.3 k/uL (1.0-4.8); Lymphocytes % (A) 25 %; MCH 29.7 pg (25.0-35.0); MCV 92.7 fL (80.0-100.0); Monocytes # (A) 0.5 k/uL (0-1.0); Monocytes % (A) 5 %; Neutrophils # (A) 5.8 k/uL (1.3-7.7); Neutrophils % (A) 64 %; Platelet Count 338 k/uL (150-450); RBC 5.16 m/uL (3.80-5.40); RDW 13.1 % (11.5-15.5); WBC 9.1 k/uL (3.8-10.6)
[2018-01-14 16:58] LABS: ALT 18 U/L (9-52); AST 32 U/L (14-36); Albumin 4.3 g/dL (3.5-5.0); Alkaline Phosphatase 79 U/L (38-126); Amylase 57 U/L (30-110); Anion Gap 8 mmol/L; Blood Urea Nitrogen 10 mg/dL (7-17); Calcium 9.3 mg/dL (8.4-10.2); Carbon Dioxide 24 mmol/L (22-30); Chloride 108 mmol/L (98-107); Glucose 88 mg/dL (74-99); Lipase 48 U/L (23-300); Potassium 4.7 mmol/L (3.5-5.1); Sodium 140 mmol/L (137-145); Total Bilirubin 0.5 mg/dL (0.2-1.3); Total Protein 7.3 g/dL (6.3-8.2)
[2018-01-14] MEDS ORDERED: SODIUM CHLORIDE 0.9% 1,000 ML IV ONE (17:07)
[2018-01-14] MEDS ORDERED: MAG HYDROX/AL HYDROX/SIMETH 30 ML, HYOSCYAMINE ELIXIR 10 ML, CIMETIDINE HCL 300 MG, LID... PO STA ×4 (17:29)
[2018-01-14] MEDS ORDERED: PANTOPRAZOLE 40 MG/10 ML VIAL IVP STA (17:29)
[2018-01-14] MEDS ORDERED: ONDANSETRON 4 MG/2 ML VIAL IVP STA (17:29)
--- NOTE | 2018-01-14 17:30 | ED ---
Abdominal Pain HPI - General Chief Complaint: Abdominal Pain Stated Complaint: Vomiting/stomach pain Time Seen by Provider: 01/14/18 16:43 Source: patient, RN notes reviewed, old records reviewed Mode of arrival: ambulatory Limitations: no limitations - History of Present Illness Initial Comments: 27 year old female, history of GERD presents to ED with vomiting and epigastric pain. She reports she did drink alcohol over the weekend. She has not been taking her protonix as she normally would. She denies fevers, chills, changes in urination or bowel habits. - Related Data Home Medications Medication Instructions Recorded Confirmed Albuterol Sulfate [Proair Hfa] 2 puff INHALATION RT-Q6H PRN 10/08/17 01/14/18 Desvenlafaxine Succinate [Pristiq 50 mg PO DAILY 01/14/18 01/14/18 ER] Mirtazapine [Remeron] 15 mg PO DAILY 01/14/18 01/14/18 Omeprazole 20 mg PO DAILY 01/14/18 01/14/18 Previous Rx's Medication Instructions Recorded Omeprazole [PriLOSEC] 40 mg PO DAILY #20 capsule. 01/14/18 Ondansetron Odt [Zofran Odt] 4 mg PO Q8HR PRN #12 tab 01/14/18 Allergies Allergy/AdvReac Type Severity Reaction Status Date / Time No Known Allergies Allergy Verified 01/14/18 16:44 Review of Systems ROS Statement: Those systems with pertinent positive or pertinent negative responses have been documented in the HPI. ROS Other: All systems not noted in ROS Statement are negative. Past Medical History Past Medical History: Asthma History of Any Multi-Drug Resistant Organisms: None Reported Past Surgical History: No Surgical Hx Reported Past Psychological History: Anxiety, Depression Smoking Status: Current every day smoker Past Alcohol Use History: Occasional Past Drug Use History: Marijuana General Exam - General Exam Comments Initial Comments: Well appearing 27 year old female, no distress. Limitations: no limitations General appearance: alert, in no apparent distress Head exam: Present: atraumatic, normocephalic, normal inspection Eye exam: Present: normal appearance, PERRL, EOMI. Absent: scleral icterus, conjunctival injection, periorbital swelling ENT exam: Present: normal exam, mucous membranes moist Neck exam: Present: normal inspection. Absent: tenderness, meningismus, lymphadenopathy Respiratory exam: Present: normal lung sounds bilaterally. Absent: respiratory distress, wheezes, rales, rhonchi, stridor Cardiovascular Exam: Present: regular rate, normal rhythm, normal heart sounds. Absent: systolic murmur, diastolic murmur, rubs, gallop, clicks GI/Abdominal exam: Present: soft, normal bowel sounds. Absent: distended, tenderness, guarding, rebound, rigid Back exam: Present: normal inspection Neurological exam: Present: alert, oriented X3, CN II-XII intact Psychiatric exam: Present: normal affect, normal mood Skin exam: Present: warm, dry, intact, normal color. Absent: rash Course Vital Signs 01/14/18 01/14/18 15:23 19:04 Temperature 98.3 F 98.2 F Pulse Rate 74 70 Respiratory 18 18 Rate Blood Pressure 111/68 103/68 O2 Sat by Pulse 98 98 Oximetry Medical Decision Making - Medical Decision Making 27 year old female presents with vomiting and epigastric pain. Abdomen is soft and non tender. Given IV fluids, GI cocktail, protonix and zofran. Labs were unremarkable. Discussed that she can follow up with PCP. Likely flare up of gastritis and PUD due to etoh consumption this weekend. Patient agrees to treatment plan and iwll comply. - Lab Data Result diagrams: 01/14/18 15:30 01/14/18 15:30 Lab Results 01/14/18 01/14/18 01/14/18 Range/Units 15:30 15:30 17:56 WBC 9.1 (3.8-10.6) k/uL RBC 5.16 (3.80-5.40) m/uL Hgb 15.3 (11.4-16.0) gm/dL Hct 47.8 H (34.0-46.0) % MCV 92.7 (80.0-100.0) fL MCH 29.7 (25.0-35.0) pg MCHC 32.0 (31.0-37.0) g/dL RDW 13.1 (11.5-15.5) % Plt Count 338 (150-450) k/uL Neutrophils % 64 % Lymphocytes % 25 % Monocytes % 5 % Eosinophils % 4 % Basophils % 0 % Neutrophils # 5.8 (1.3-7.7) k/uL Lymphocytes # 2.3 (1.0-4.8) k/uL Monocytes # 0.5 (0-1.0) k/uL Eosinophils # 0.3 (0-0.7) k/uL Basophils # 0.0 (0-0.2) k/uL Sodium 140 (137-145) mmol/L Potassium 4.7 (3.5-5.1) mmol/L Chloride 108 H (98-107) mmol/L Carbon Dioxide 24 (22-30) mmol/L Anion Gap 8 mmol/L BUN 10 (7-17) mg/dL Creatinine 0.56 (0.52-1.04) mg/dL Est GFR (CKD-EPI)AfAm >90 (>60 ml/min/1.73 sqM) Est GFR (CKD-EPI)NonAf >90 (>60 ml/min/1.73 sqM) Glucose 88 (74-99) mg/dL Calcium 9.3 (8.4-10.2) mg/dL Total Bilirubin 0.5 (0.2-1.3) mg/dL AST 32 (14-36) U/L ALT 18 (9-52) U/L Alkaline Phosphatase 79 (38-126) U/L Total Protein 7.3 (6.3-8.2) g/dL Albumin 4.3 (3.5-5.0) g/dL Amylase 57 (30-110) U/L Lipase 48 (23-300) U/L Urine Color Yellow Urine Appearance Clear (Clear) Urine pH 6.0 (5.0-8.0) Ur Specific [place] 1.023 (1.001-1.035) Urine Protein Negative (Negative) Urine Glucose (UA) Negative (Negative) Urine Ketones Negative (Negative) Urine Blood Negative (Negative) Urine Nitrite Negative (Negative) Urine Bilirubin Negative (Negative) Urine Urobilinogen <2.0 (<2.0) mg/dL Ur Leukocyte Esterase Negative (Negative) Urine HCG, Qual (Not Detectd) 01/14/18 Range/Units 17:56 WBC (3.8-10.6) k/uL RBC (3.80-5.40) m/uL Hgb (11.4-16.0) gm/dL Hct (34.0-46.0) % MCV (80.0-100.0) fL MCH (25.0-35.0) pg MCHC (31.0-37.0) g/dL RDW (11.5-15.5) % Plt Count (150-450) k/uL Neutrophils % % Lymphocytes % % Monocytes % % Eosinophils % % Basophils % % Neutrophils # (1.3-7.7) k/uL Lymphocytes # (1.0-4.8) k/uL Monocytes # (0-1.0) k/uL Eosinophils # (0-0.7) k/uL Basophils # (0-0.2) k/uL Sodium (137-145) mmol/L Potassium (3.5-5.1) mmol/L Chloride (98-107) mmol/L Carbon Dioxide (22-30) mmol/L Anion Gap mmol/L BUN (7-17) mg/dL Creatinine (0.52-1.04) mg/dL Est GFR (CKD-EPI)AfAm (>60 ml/min/1.73 sqM) Est GFR (CKD-EPI)NonAf (>60 ml/min/1.73 sqM) Glucose (74-99) mg/dL Calcium (8.4-10.2) mg/dL Total Bilirubin (0.2-1.3) mg/dL AST (14-36) U/L ALT (9-52) U/L Alkaline Phosphatase (38-126) U/L Total Protein (6.3-8.2) g/dL Albumin (3.5-5.0) g/dL Amylase (30-110) U/L Lipase (23-300) U/L Urine Color Urine Appearance (Clear) Urine pH (5.0-8.0) Ur Specific [place] (1.001-1.035) Urine Protein (Negative) Urine Glucose (UA) (Negative) Urine Ketones (Negative) Urine Blood (Negative) Urine Nitrite (Negative) Urine Bilirubin (Negative) Urine Urobilinogen (<2.0) mg/dL Ur Leukocyte Esterase (Negative) Urine HCG, Qual Not Detected (Not Detectd) Disposition Clinical Impression: Gastritis Disposition: HOME SELF-CARE Condition: Good Instructions: Gastritis (ED), Diet for Stomach Ulcers and Gastritis (ED) Additional Instructions: Patient denies follow-up with primary care physician. Return to the emergency department if any alarming signs or symptoms occur. Clear liquid diet. Prescriptions: Omeprazole [PriLOSEC] 40 mg PO DAILY #20 capsule. Ondansetron Odt [Zofran Odt] 4 mg PO Q8HR PRN #12 tab PRN Reason: Nausea Is patient prescribed a controlled substance at d/c from ED?: No Referrals: Jacinto Craig DO [Primary Care Provider] - 1-2 days Time of Disposition: 18:20
[2018-01-14 18:18] LABS: Appearance,Urine Clear (Clear); Bilirubin,Urine Negative (Negative); Blood,Urine Negative (Negative); Color,Urine Yellow; Glucose,Urine (UA) Negative (Negative); Ketones,Urine Negative (Negative); Leukocyte Esterase,Urine Negative (Negative); Nitrite,Urine Negative (Negative); Protein,Urine Negative (Negative); Specific Gravity,Urine 1.023 (1.001-1.035); Urobilinogen,Urine <2.0 mg/dL (<2.0)
[2018-01-14 19:10] VITALS: BP 103/68; PULSE 70; TEMP 98.2
== END 2018-01-14 19:10 | disposition home or self-care (01) ==
LOC: EC 14:50
DX: K29.70 Gastritis, unspecified, without bleeding (principal); J45.909 Unspecified asthma, uncomplicated; K21.9 Gastro-esophageal reflux disease without esophagitis; F41.9 Anxiety disorder, unspecified; F32.9 Major depressive disorder, single episode, unspecified; F17.200 Nicotine dependence, unspecified, uncomplicated; Z79.899 Other long term (current) drug therapy
CPT/HCPCS: 36415; 80053; 82150; 83690; 85025; 81003; 81025; 99284; 96374; 96375; 96361; J2405; C9113

== ENCOUNTER 2018-09-23 09:09 | Emergency (ER) | payer BC ==
[2018-09-23] MEDS ORDERED: KETOROLAC 30 MG/ML 1 ML VIAL IVP STA (09:33)
[2018-09-23] MEDS ORDERED: SODIUM CHLORIDE 0.9% 1,000 ML IV STA (09:33)
[2018-09-23] MEDS ORDERED: HYDROcodone/APAP 5-325MG 1 EACH TAB PO STA (09:34)
--- NOTE | 2018-09-23 09:38 | ED ---
Abdominal Pain HPI - General Chief Complaint: Abdominal Pain Stated Complaint: CRAMPING, FEMALE Time Seen by Provider: 09/23/18 09:23 Source: patient, RN notes reviewed Mode of arrival: ambulatory Limitations: no limitations - History of Present Illness Initial Comments: This is a 28-year-old female presents emergency Department chief complaint of se daisy lower abdominal pain. Patient states that she's been worsening menstrual cycle last month states her period started yesterday and she started extreme pain today. She states only seems to help his a heating pad she has tried multiple [id number] pain meds with no relief. Patient denies any chance . She has no dysuria no hematuria she's had some diarrhea but nothing persistent no melena or hematochezia. Patient states the bleeding is heavier today than what yesterday when not out of the ordinary. Patient states that the pain so severe makes her legs feel weak. Patient denies any paresthesias no bowel bladder incontinence or retention. Denies any saddle anesthesias or lower extremity paresthesias - Related Data Home Medications Medication Instructions Recorded Confirmed Ibuprofen [Motrin Ib] 600 mg PO Q6H PRN 09/23/18 09/23/18 Naproxen Sodium [Midol] 440 mg PO Q12HR PRN 09/23/18 09/23/18 Previous Rx's Medication Instructions Recorded traMADol HCl [Ultram] 50 mg PO Q6H PRN #12 tab 09/23/18 Allergies Allergy/AdvReac Type Severity Reaction Status Date / Time No Known Allergies Allergy Verified 09/23/18 09:27 Review of Systems ROS Statement: Those systems with pertinent positive or pertinent negative responses have been documented in the HPI. ROS Other: All systems not noted in ROS Statement are negative. Past Medical History Past Medical History: Asthma History of Any Multi-Drug Resistant Organisms: None Reported Past Surgical History: No Surgical Hx Reported Past Psychological History: Anxiety, Depression Smoking Status: Current every day smoker Past Alcohol Use History: Occasional Past Drug Use History: Marijuana General Exam Limitations: no limitations General appearance: alert, in no apparent distress Head exam: Present: atraumatic, normocephalic, normal inspection Eye exam: Present: normal appearance, PERRL, EOMI. Absent: scleral icterus, conjunctival injection, periorbital swelling ENT exam: Present: normal exam, normal oropharynx, mucous membranes moist Neck exam: Present: normal inspection, full ROM. Absent: tenderness, meningismus, lymphadenopathy Respiratory exam: Present: normal lung sounds bilaterally. Absent: respiratory distress, wheezes, rales, rhonchi, stridor Cardiovascular Exam: Present: regular rate, normal rhythm, normal heart sounds. Absent: systolic murmur, diastolic murmur, rubs, gallop, clicks GI/Abdominal exam: Present: soft, tenderness (Mild suprapubic), normal bowel sounds. Absent: distended, guarding, rebound, rigid Back exam: Absent: CVA tenderness (R), CVA tenderness (L) Skin exam: Present: warm, dry, intact, normal color. Absent: rash Course Vital Signs 09/23/18 09:14 Temperature 97.8 F Pulse Rate 62 Respiratory 18 Rate Blood Pressure 131/90 O2 Sat by Pulse 98 Oximetry Medical Decision Making - Medical Decision Making 20-year-old female presented for lower abdominal pain and pelvic pain. Patient symptoms started on her menstrual cycle. Patient labs and old shunt resolve unremarkable. This may be overlying dysmenorrhea or concern for endometriosis. Patient will follow-up with [facility]ON[facility] return for any worsening symptoms. - Lab Data Result diagrams: 09/23/18 09:53 09/23/18 09:53 Lab Results 09/23/18 09/23/18 09/23/18 Range/Units 09:53 09:53 10:12 WBC 9.2 (3.8-10.6) k/uL RBC 4.61 (3.80-5.40) m/uL Hgb 13.9 (11.4-16.0) gm/dL Hct 41.8 (34.0-46.0) % MCV 90.6 (80.0-100.0) fL MCH 30.1 (25.0-35.0) pg MCHC 33.3 (31.0-37.0) g/dL RDW 13.1 (11.5-15.5) % Plt Count 232 (150-450) k/uL Neutrophils % 65 % Lymphocytes % 21 % Monocytes % 7 % Eosinophils % 4 % Basophils % 0 % Neutrophils # 6.0 (1.3-7.7) k/uL Lymphocytes # 1.9 (1.0-4.8) k/uL Monocytes # 0.6 (0-1.0) k/uL Eosinophils # 0.4 (0-0.7) k/uL Basophils # 0.0 (0-0.2) k/uL Sodium 141 (137-145) mmol/L Potassium 4.6 (3.5-5.1) mmol/L Chloride 108 H (98-107) mmol/L Carbon Dioxide 25 (22-30) mmol/L Anion Gap 8 mmol/L BUN 16 (7-17) mg/dL Creatinine 0.66 (0.52-1.04) mg/dL Est GFR (CKD-EPI)AfAm >90 (>60 ml/min/1.73 sqM) Est GFR (CKD-EPI)NonAf >90 (>60 ml/min/1.73 sqM) Glucose 99 (74-99) mg/dL Calcium 8.9 (8.4-10.2) mg/dL Total Bilirubin 0.3 (0.2-1.3) mg/dL AST 15 (14-36) U/L ALT 15 (9-52) U/L Alkaline Phosphatase 57 (38-126) U/L Total Protein 6.4 (6.3-8.2) g/dL Albumin 3.9 (3.5-5.0) g/dL Lipase 81 (23-300) U/L Urine Color Yellow Urine Appearance Cloudy H (Clear) Urine pH 7.5 (5.0-8.0) Ur Specific [place] 1.025 (1.001-1.035) Urine Protein Negative (Negative) Urine Glucose (UA) Negative (Negative) Urine Ketones Negative (Negative) Urine Blood Negative (Negative) Urine Nitrite Negative (Negative) Urine Bilirubin Negative (Negative) Urine Urobilinogen <2.0 (<2.0) mg/dL Ur Leukocyte Esterase Negative (Negative) Urine RBC 2 (0-5) /hpf Urine WBC 1 (0-5) /hpf Ur Squamous Epith Cells 1 (0-4) /hpf Amorphous Sediment Rare H (None) /hpf Urine HCG, Qual (Not Detectd) 09/23/18 Range/Units 10:12 WBC (3.8-10.6) k/uL RBC (3.80-5.40) m/uL Hgb (11.4-16.0) gm/dL Hct (34.0-46.0) % MCV (80.0-100.0) fL MCH (25.0-35.0) pg MCHC (31.0-37.0) g/dL RDW (11.5-15.5) % Plt Count (150-450) k/uL Neutrophils % % Lymphocytes % % Monocytes % % Eosinophils % % Basophils % % Neutrophils # (1.3-7.7) k/uL Lymphocytes # (1.0-4.8) k/uL Monocytes # (0-1.0) k/uL Eosinophils # (0-0.7) k/uL Basophils # (0-0.2) k/uL Sodium (137-145) mmol/L Potassium (3.5-5.1) mmol/L Chloride (98-107) mmol/L Carbon Dioxide (22-30) mmol/L Anion Gap mmol/L BUN (7-17) mg/dL Creatinine (0.52-1.04) mg/dL Est GFR (CKD-EPI)AfAm (>60 ml/min/1.73 sqM) Est GFR (CKD-EPI)NonAf (>60 ml/min/1.73 sqM) Glucose (74-99) mg/dL Calcium (8.4-10.2) mg/dL Total Bilirubin (0.2-1.3) mg/dL AST (14-36) U/L ALT (9-52) U/L Alkaline Phosphatase (38-126) U/L Total Protein (6.3-8.2) g/dL Albumin (3.5-5.0) g/dL Lipase (23-300) U/L Urine Color Urine Appearance (Clear) Urine pH (5.0-8.0) Ur Specific [place] (1.001-1.035) Urine Protein (Negative) Urine Glucose (UA) (Negative) Urine Ketones (Negative) Urine Blood (Negative) Urine Nitrite (Negative) Urine Bilirubin (Negative) Urine Urobilinogen (<2.0) mg/dL Ur Leukocyte Esterase (Negative) Urine RBC (0-5) /hpf Urine WBC (0-5) /hpf Ur Squamous Epith Cells (0-4) /hpf Amorphous Sediment (None) /hpf Urine HCG, Qual Not Detected (Not Detectd) Disposition Clinical Impression: Dysmenorrhea Disposition: ADMITTED IP TO THIS [facility] Condition: Stable Instructions (If sedation given, give patient instructions): Dysmenorrhea (ED) Additional Instructions: Please return to the Emergency Department if symptoms worsen or any other concerns. Prescriptions: traMADol HCl [Ultram] 50 mg PO Q6H PRN #12 tab PRN Reason: Pain Is patient prescribed a controlled substance at d/c from ED?: Yes When asked, does pt state using other controlled substances?: No If prescribed controlled substance>3 days was MAPS reviewed?: Prescribed <3 Days Referrals: Jacinto Craig DO [Primary Care Provider] - 1-2 days Time of Disposition: 11:22
[2018-09-23 10:19] LABS: Basophils % (A) 0 %; Eosinophils # (A) 0.4 k/uL (0-0.7); Eosinophils % (A) 4 %; HCT 41.8 % (34.0-46.0); HGB 13.9 gm/dL (11.4-16.0); Lymphocytes # (A) 1.9 k/uL (1.0-4.8); Lymphocytes % (A) 21 %; MCH 30.1 pg (25.0-35.0); MCHC 33.3 g/dL (31.0-37.0); MCV 90.6 fL (80.0-100.0); Mean Platelet Volume 6.7; Monocytes # (A) 0.6 k/uL (0-1.0); Monocytes % (A) 7 %; Neutrophils % (A) 65 %; Platelet Count 232 k/uL (150-450); RBC 4.61 m/uL (3.80-5.40); RDW 13.1 % (11.5-15.5); WBC 9.2 k/uL (3.8-10.6)
[2018-09-23 10:28] LABS: ALT 15 U/L (9-52); AST 15 U/L (14-36); African American GFR (CKD) >90 (>60 ml/min/1.73 sqM); Albumin 3.9 g/dL (3.5-5.0); Alkaline Phosphatase 57 U/L (38-126); Anion Gap 8 mmol/L; Blood Urea Nitrogen 16 mg/dL (7-17); Calcium 8.9 mg/dL (8.4-10.2); Carbon Dioxide 25 mmol/L (22-30); Chloride 108 mmol/L (98-107); Glucose 99 mg/dL (74-99); Potassium 4.6 mmol/L (3.5-5.1); Sodium 141 mmol/L (137-145); Total Bilirubin 0.3 mg/dL (0.2-1.3); Total Protein 6.4 g/dL (6.3-8.2)
[2018-09-23 10:33] LABS: Amorphous Sediment,Urine Rare /hpf; Appearance,Urine Cloudy (Clear); Bilirubin,Urine Negative (Negative); Blood,Urine Negative (Negative); Color,Urine Yellow; Glucose,Urine (UA) Negative (Negative); Ketones,Urine Negative (Negative); Leukocyte Esterase,Urine Negative (Negative); Nitrite,Urine Negative (Negative); PH, Urine 7.5 (5.0-8.0); Protein,Urine Negative (Negative); RBC,Urine 2 /hpf (0-5); Specific Gravity,Urine 1.025 (1.001-1.035); Squamous Epithelial Cell,Urine 1 /hpf (0-4); Urobilinogen,Urine <2.0 mg/dL (<2.0)
--- NOTE | 2018-09-23 10:44 | US ---
EXAMINATION TYPE: US transvaginal DATE OF EXAM: 09/23/2018 COMPARISON: CT CLINICAL HISTORY: Pain. Pt states severe pelvic pain with start of menses TECHNIQUE: Transvaginal (TV). Transvaginal sonographic images of the pelvis were acquired. Date of LMP: 09/22/2018 EXAM MEASUREMENTS: Uterus: 6.5 x 3.8 x 4.8 cm Endometrial Stripe: 0.5 cm Right Ovary: 3.3 x 2.6 x 2.2 cm Left Ovary: 3.1 x 1.9 x 2.7 cm 1. Uterus: Retroverted wnl 2. Endometrium: wnl 3. Right Ovary: wnl, physiologic follicles 4. Left Ovary: wnl, physiologic follicles Spectral, color and waveform doppler imaging shows good arterial and venous flow within the ovaries ; there is no evidence for ovarian torsion. 5. Bilateral Adnexa: wnl 6. Posterior cul-de-sac: Unremarkable IMPRESSION: Unremarkable pelvic ultrasound. No endometrial thickening or sizable ovarian cyst. Physio logic ovarian follicles are seen bilaterally.
[2018-09-23 11:42] VITALS: BP 136/84; PULSE 54; RESP 16; TEMP 98.8
--- NOTE | 2018-09-26 04:06 | CDI ---
Dear Johnie Spencer MD: Please do addendum clarification on Disposition of the Patient whether "HOME" or "AIP" as in Medical Decision Making mentioned as "Patient will follow-up with [facility] return for any worsening symptoms," but in Disposition is ADMITTED IP TO THIS HOSP. Thank you, Kanchan Fox, Furniture Sprayer. If you have any questions, please contact Portfolio Analyst at [phone]. RANDYD
--- NOTE | 2018-09-30 07:01 | ED ---
Medical Decision Making - Lab Data Result diagrams: 09/23/18 09:53 09/23/18 09:53 Lab Results 09/23/18 09/23/18 09/23/18 Range/Units 09:53 09:53 10:12 WBC 9.2 (3.8-10.6) k/uL RBC 4.61 (3.80-5.40) m/uL Hgb 13.9 (11.4-16.0) gm/dL Hct 41.8 (34.0-46.0) % MCV 90.6 (80.0-100.0) fL MCH 30.1 (25.0-35.0) pg MCHC 33.3 (31.0-37.0) g/dL RDW 13.1 (11.5-15.5) % Plt Count 232 (150-450) k/uL Neutrophils % 65 % Lymphocytes % 21 % Monocytes % 7 % Eosinophils % 4 % Basophils % 0 % Neutrophils # 6.0 (1.3-7.7) k/uL Lymphocytes # 1.9 (1.0-4.8) k/uL Monocytes # 0.6 (0-1.0) k/uL Eosinophils # 0.4 (0-0.7) k/uL Basophils # 0.0 (0-0.2) k/uL Sodium 141 (137-145) mmol/L Potassium 4.6 (3.5-5.1) mmol/L Chloride 108 H (98-107) mmol/L Carbon Dioxide 25 (22-30) mmol/L Anion Gap 8 mmol/L BUN 16 (7-17) mg/dL Creatinine 0.66 (0.52-1.04) mg/dL Est GFR (CKD-EPI)AfAm >90 (>60 ml/min/1.73 sqM) Est GFR (CKD-EPI)NonAf >90 (>60 ml/min/1.73 sqM) Glucose 99 (74-99) mg/dL Calcium 8.9 (8.4-10.2) mg/dL Total Bilirubin 0.3 (0.2-1.3) mg/dL AST 15 (14-36) U/L ALT 15 (9-52) U/L Alkaline Phosphatase 57 (38-126) U/L Total Protein 6.4 (6.3-8.2) g/dL Albumin 3.9 (3.5-5.0) g/dL Lipase 81 (23-300) U/L Urine Color Yellow Urine Appearance Cloudy H (Clear) Urine pH 7.5 (5.0-8.0) Ur Specific [place] 1.025 (1.001-1.035) Urine Protein Negative (Negative) Urine Glucose (UA) Negative (Negative) Urine Ketones Negative (Negative) Urine Blood Negative (Negative) Urine Nitrite Negative (Negative) Urine Bilirubin Negative (Negative) Urine Urobilinogen <2.0 (<2.0) mg/dL Ur Leukocyte Esterase Negative (Negative) Urine RBC 2 (0-5) /hpf Urine WBC 1 (0-5) /hpf Ur Squamous Epith Cells 1 (0-4) /hpf Amorphous Sediment Rare H (None) /hpf Urine HCG, Qual (Not Detectd) 09/23/18 Range/Units 10:12 WBC (3.8-10.6) k/uL RBC (3.80-5.40) m/uL Hgb (11.4-16.0) gm/dL Hct (34.0-46.0) % MCV (80.0-100.0) fL MCH (25.0-35.0) pg MCHC (31.0-37.0) g/dL RDW (11.5-15.5) % Plt Count (150-450) k/uL Neutrophils % % Lymphocytes % % Monocytes % % Eosinophils % % Basophils % % Neutrophils # (1.3-7.7) k/uL Lymphocytes # (1.0-4.8) k/uL Monocytes # (0-1.0) k/uL Eosinophils # (0-0.7) k/uL Basophils # (0-0.2) k/uL Sodium (137-145) mmol/L Potassium (3.5-5.1) mmol/L Chloride (98-107) mmol/L Carbon Dioxide (22-30) mmol/L Anion Gap mmol/L BUN (7-17) mg/dL Creatinine (0.52-1.04) mg/dL Est GFR (CKD-EPI)AfAm (>60 ml/min/1.73 sqM) Est GFR (CKD-EPI)NonAf (>60 ml/min/1.73 sqM) Glucose (74-99) mg/dL Calcium (8.4-10.2) mg/dL Total Bilirubin (0.2-1.3) mg/dL AST (14-36) U/L ALT (9-52) U/L Alkaline Phosphatase (38-126) U/L Total Protein (6.3-8.2) g/dL Albumin (3.5-5.0) g/dL Lipase (23-300) U/L Urine Color Urine Appearance (Clear) Urine pH (5.0-8.0) Ur Specific [place] (1.001-1.035) Urine Protein (Negative) Urine Glucose (UA) (Negative) Urine Ketones (Negative) Urine Blood (Negative) Urine Nitrite (Negative) Urine Bilirubin (Negative) Urine Urobilinogen (<2.0) mg/dL Ur Leukocyte Esterase (Negative) Urine RBC (0-5) /hpf Urine WBC (0-5) /hpf Ur Squamous Epith Cells (0-4) /hpf Amorphous Sediment (None) /hpf Urine HCG, Qual Not Detected (Not Detectd) Disposition Clinical Impression: Dysmenorrhea Disposition: HOME SELF-CARE Condition: Stable Instructions (If sedation given, give patient instructions): Dysmenorrhea (ED) Additional Instructions: Please return to the Emergency Department if symptoms worsen or any other concerns. Prescriptions: traMADol HCl [Ultram] 50 mg PO Q6H PRN #12 tab PRN Reason: Pain Is patient prescribed a controlled substance at d/c from ED?: Yes When asked, does pt state using other controlled substances?: No If prescribed controlled substance>3 days was MAPS reviewed?: Prescribed <3 Days Referrals: Jacinto Craig DO [Primary Care Provider] - 1-2 days
== END 2018-09-23 11:46 | disposition home or self-care (01) ==
LOC: EC 09:09
DX: N94.6 Dysmenorrhea, unspecified (principal); R19.7 Diarrhea, unspecified; F17.200 Nicotine dependence, unspecified, uncomplicated
CPT/HCPCS: 99284; 96374; 96361; 36415; 80053; 83690; 85025; 81001; 81025; 93975; 76830; J1885

== ENCOUNTER 2018-09-24 20:50 | Emergency (ER) | payer BC ==
[2018-09-24 21:01] VITALS: BP 150/93; PULSE 90; RESP 18; TEMP 98.1
[2018-09-24] MEDS ORDERED: LIDOCAINE 1% INJ 10MG/ML (20 ML MDV) SQ ONE (21:04)
--- NOTE | 2018-09-24 21:22 | ED ---
Wound/Laceration HPI - General Chief Complaint: Wound/Laceration Stated Complaint: Leg laceration Time Seen by Provider: 09/24/18 20:56 Source: patient Mode of arrival: ambulatory Limitations: no limitations - History of Present Illness Initial Comments: 28-year-old female presenting for laceration of the left upper thigh. Patient states she was walking out of door that had a loose piece of metal and caught her in the left upper thigh. Patient states there is no foreign body denies any other areas of injury. States tetanus is up-to-date. states bleeding is controlled. Remaining review of systems negative upon arrival patient appears well signs of acute distress. - Related Data Home Medications Medication Instructions Recorded Confirmed Ibuprofen [Motrin Ib] 600 mg PO Q6H PRN 09/23/18 09/23/18 Naproxen Sodium [Midol] 440 mg PO Q12HR PRN 09/23/18 09/23/18 Previous Rx's Medication Instructions Recorded traMADol HCl [Ultram] 50 mg PO Q6H PRN #12 tab 09/23/18 Allergies Allergy/AdvReac Type Severity Reaction Status Date / Time No Known Allergies Allergy Verified 09/24/18 21:01 Review of Systems ROS Statement: Those systems with pertinent positive or pertinent negative responses have been documented in the HPI. ROS Other: All systems not noted in ROS Statement are negative. Past Medical History Past Medical History: Asthma History of Any Multi-Drug Resistant Organisms: None Reported Past Surgical History: No Surgical Hx Reported Past Psychological History: Anxiety, Depression Smoking Status: Current every day smoker Past Alcohol Use History: Occasional Past Drug Use History: Marijuana General Exam - General Exam Comments Initial Comments: General: The patient is awake and alert, in no distress, and does not appear acutely ill. Eye: Pupils are equal, round and reactive to light, extra-ocular movements are intact. No nystagmus. There is normal conjunctiva bilaterally. No signs of icterus. Cardiovascular: There is a regular rate and rhythm. No murmur, rub or gallop is appreciated. Respiratory: Lungs are clear to auscultation, respirations are non-labored, breath sounds are equal. No wheezes, stridor, rales, or rhonchi. Musculoskeletal: Normal ROM, no tenderness. Strength 5/5. Sensation intact. Pulses equal bilaterally 2+. Neurological: A&O x 3. CN II-XII intact, There are no obvious motor or sensory deficits. Coordination appears grossly intact. Speech is normal. Skin: Skin is warm and dry and no rashes or lesions are noted. 3cm laceration of the left anterior thigh. Adipose exposed no fb. clean.linear. Psychiatric: Cooperative, appropriate mood & affect, normal judgment. Limitations: no limitations Course Vital Signs 09/24/18 20:58 Temperature 98.1 F Pulse Rate 90 Respiratory 18 Rate Blood Pressure 150/93 O2 Sat by Pulse 98 Oximetry Procedures - Laceration Laceration #1 Consent Obtained: verbal consent Indication: laceration Site: lower extremity Size (cm): 4 Description: linear Depth: simple, single layer Anesthesia Technique: local infiltration Amount (mls): 2 Pre-repair: wound explored, irrigated extensively, deep structures intact Type of Sutures: nylon Size of Sutures: 4-0 Number of Sutures: 7 Technique: simple, interrupted Patient Tolerated Procedure: well, no complications Additional Comments: Irrigated with saline and cleansed with iodine prior to closure. Medical Decision Making - Medical Decision Making 20-year-old female presenting for left thigh laceration. Simple linear. No foreign body. Bleeding controlled. Small amount of adipose exposed. Wound repaired. Patient tolerated procedure well. Tetanus up-to-date. Denies any other areas of injury. Return parameters and signs of infection were discussed. Patient was discharged appearing well after discussing importance of follow-up for suture removal in 7 days. Disposition Clinical Impression: Laceration of left thigh Disposition: HOME SELF-CARE Condition: Good Instructions (If sedation given, give patient instructions): Care For Your Stitches (ED), Laceration (ED) Additional Instructions: Please use medication as discussed. Please follow-up here in 7 days for suture removal. Please return to emergency room if the symptoms increase or worsen or for any other concerns--redness, warmth, drainage, increasing pain. Is patient prescribed a controlled substance at d/c from ED?: No Referrals: Jacinto Craig DO [Primary Care Provider] - 1-2 days Time of Disposition: 21:21
== END 2018-09-24 21:30 | disposition home or self-care (01) ==
LOC: EC 20:50
DX: S71.112A Laceration without foreign body, left thigh, initial encounter (principal); F17.200 Nicotine dependence, unspecified, uncomplicated; W26.8XXA Contact with other sharp object(s), not elsewhere classified, initial encounter; Y93.01 Activity, walking, marching and hiking; Y92.009 Unspecified place in unspecified non-institutional (private) residence as the place of occurrence of the external cause
CPT/HCPCS: 99282; 12002; J2001

== ENCOUNTER → 2019-09-10 | Outpatient (CLI) | payer BC | END | disposition home or self-care (01) | LOC: LABWHC1 12:35 | PROVIDERS: ATTEND Emergency Medicine | DX: Z20.828 Contact with and (suspected) exposure to other viral communicable diseases (principal) | CPT/HCPCS: U0003; C9803 ==

== ENCOUNTER 2020-06-02 06:53 | Emergency (ER) | payer BC, OTHER ==
[2020-06-02] MEDS ORDERED: ASPIRIN 81 MG PO STA (07:25)
[2020-06-02] MEDS ORDERED: NITROGLYCERIN SL TABS 0.4 MG TAB SUBLINGUAL STA (07:25)
--- NOTE | 2020-06-02 07:25 | ED ---
General Adult HPI - General Chief complaint: Chest Pain Stated complaint: Chest pain Time Seen by Provider: 06/02/20 06:59 Source: patient, RN notes reviewed Mode of arrival: ambulatory Limitations: no limitations - History of Present Illness Initial comments: Patient is a pleasant 29-year-old female presenting to the emergency Department with complaints of chest discomfort. Onset of symptoms was yesterday evening. Patient did return home from a flight earlier that day. Patient has sharp discomfort in her chest without radiation. Patient states it hurts to take a deep breath, otherwise no shortness of breath. No cough. No fever. No leg pain or leg swelling. Patient did feel a little bit nauseous earlier. No sweating. No history of similar symptoms previously. Discomfort does increase with deep breaths and movement. - Related Data Home Medications Medication Instructions Recorded Confirmed Ibuprofen [Motrin Ib] 600 mg PO Q6H PRN 09/23/18 09/23/18 Naproxen Sodium [Midol] 440 mg PO Q12HR PRN 09/23/18 09/23/18 Previous Rx's Medication Instructions Recorded traMADol HCl [Ultram] 50 mg PO Q6H PRN #12 tab 09/23/18 Allergies Allergy/AdvReac Type Severity Reaction Status Date / Time No Known Allergies Allergy Verified 09/24/18 21:01 Review of Systems ROS Statement: Those systems with pertinent positive or pertinent negative responses have been documented in the HPI. ROS Other: All systems not noted in ROS Statement are negative. Constitutional: Denies: fever Eyes: Denies: eye pain ENT: Denies: ear pain Respiratory: Reports: as per HPI Cardiovascular: Reports: as per HPI, chest pain Endocrine: Denies: fatigue Gastrointestinal: Denies: abdominal pain Genitourinary: Denies: dysuria Musculoskeletal: Denies: back pain Skin: Denies: rash Neurological: Denies: weakness Psychiatric: Reports: anxiety Past Medical History Past Medical History: Asthma History of Any Multi-Drug Resistant Organisms: None Reported Past Surgical History: No Surgical Hx Reported Past Psychological History: Anxiety, Depression Smoking Status: Current every day smoker Past Alcohol Use History: Occasional Past Drug Use History: Marijuana General Exam Limitations: no limitations General appearance: alert, in no apparent distress Head exam: Present: normocephalic Eye exam: Present: normal appearance, PERRL Neck exam: Present: normal inspection Respiratory exam: Present: normal lung sounds bilaterally, chest wall tenderness Cardiovascular Exam: Present: regular rate, normal rhythm Expanded Peripheral pulses: 2+: Radial (R), Radial (L), Posterior Tibialis (R), Posterior Tibialis (L) GI/Abdominal exam: Present: soft. Absent: tenderness Extremities exam: Present: normal inspection. Absent: pedal edema, calf tenderness Neurological exam: Present: alert Psychiatric exam: Present: normal affect, normal mood Skin exam: Present: normal color Course Vital Signs 06/02/20 06/02/20 06/02/20 07:10 07:43 08:00 Temperature 97.5 F L Pulse Rate 74 70 Respiratory 18 25 H Rate Blood Pressure 168/85 114/73 114/73 O2 Sat by Pulse 96 96 Oximetry 06/02/20 06/02/20 06/02/20 08:30 09:00 09:30 Temperature Pulse Rate 61 57 L 52 L Respiratory 22 22 14 Rate Blood Pressure 114/73 118/81 110/75 O2 Sat by Pulse 96 97 96 Oximetry - Reevaluation(s) Reevaluation #1: 06/02/20 09:41 Patient reevaluated and resting comfortably in bed. No improvement with nitroglycerin however chest discomfort near resolved with Toradol. Patient updated on results and need for follow-up. EKG Findings - EKG Comments: EKG Findings:: Normal sinus rhythm with rate of 61. HI 148. QRS 88. QT 422. QTC 424. Normal axis. Poor R wave aggression. No acute ST change. Medical Decision Making - Lab Data Result diagrams: 06/02/20 07:39 06/02/20 07:39 Lab Results 06/02/20 06/02/20 06/02/20 Range/Units 07:39 07:39 07:39 WBC 7.2 (3.8-10.6) k/uL RBC 4.80 (3.80-5.40) m/uL Hgb 15.1 (11.4-16.0) gm/dL Hct 42.9 (34.0-46.0) % MCV 89.5 (80.0-100.0) fL MCH 31.5 (25.0-35.0) pg MCHC 35.2 (31.0-37.0) g/dL RDW 12.6 (11.5-15.5) % Plt Count 246 (150-450) k/uL MPV 7.1 Neutrophils % 65 % Lymphocytes % 20 % Monocytes % 8 % Eosinophils % 5 % Basophils % 1 % Neutrophils # 4.7 (1.3-7.7) k/uL Lymphocytes # 1.4 (1.0-4.8) k/uL Monocytes # 0.6 (0-1.0) k/uL Eosinophils # 0.4 (0-0.7) k/uL Basophils # 0.0 (0-0.2) k/uL PT 10.1 (9.0-12.0) sec INR 0.9 (<1.2) APTT 25.5 (22.0-30.0) sec D-Dimer 0.18 (<0.60) mg/L FEU Sodium 138 (137-145) mmol/L Potassium 4.0 (3.5-5.1) mmol/L Chloride 109 H (98-107) mmol/L Carbon Dioxide 24 (22-30) mmol/L Anion Gap 5 mmol/L BUN 10 (7-17) mg/dL Creatinine 0.59 (0.52-1.04) mg/dL Est GFR (CKD-EPI)AfAm >90 (>60 ml/min/1.73 sqM) Est GFR (CKD-EPI)NonAf >90 (>60 ml/min/1.73 sqM) Glucose 95 (74-99) mg/dL Calcium 8.9 (8.4-10.2) mg/dL Magnesium 2.0 (1.6-2.3) mg/dL Total Bilirubin 0.4 (0.2-1.3) mg/dL AST 19 (14-36) U/L ALT 12 (4-34) U/L Alkaline Phosphatase 72 (38-126) U/L Troponin I (0.000-0.034) ng/mL Total Protein 6.6 (6.3-8.2) g/dL Albumin 4.1 (3.5-5.0) g/dL Coronavirus (PCR) (Not Detectd) 06/02/20 06/02/20 Range/Units 07:39 07:39 WBC (3.8-10.6) k/uL RBC (3.80-5.40) m/uL Hgb (11.4-16.0) gm/dL Hct (34.0-46.0) % MCV (80.0-100.0) fL MCH (25.0-35.0) pg MCHC (31.0-37.0) g/dL RDW (11.5-15.5) % Plt Count (150-450) k/uL MPV Neutrophils % % Lymphocytes % % Monocytes % % Eosinophils % % Basophils % % Neutrophils # (1.3-7.7) k/uL Lymphocytes # (1.0-4.8) k/uL Monocytes # (0-1.0) k/uL Eosinophils # (0-0.7) k/uL Basophils # (0-0.2) k/uL PT (9.0-12.0) sec INR (<1.2) APTT (22.0-30.0) sec D-Dimer (<0.60) mg/L FEU Sodium (137-145) mmol/L Potassium (3.5-5.1) mmol/L Chloride (98-107) mmol/L Carbon Dioxide (22-30) mmol/L Anion Gap mmol/L BUN (7-17) mg/dL Creatinine (0.52-1.04) mg/dL Est GFR (CKD-EPI)AfAm (>60 ml/min/1.73 sqM) Est GFR (CKD-EPI)NonAf (>60 ml/min/1.73 sqM) Glucose (74-99) mg/dL Calcium (8.4-10.2) mg/dL Magnesium (1.6-2.3) mg/dL Total Bilirubin (0.2-1.3) mg/dL AST (14-36) U/L ALT (4-34) U/L Alkaline Phosphatase (38-126) U/L Troponin I <0.012 (0.000-0.034) ng/mL Total Protein (6.3-8.2) g/dL Albumin (3.5-5.0) g/dL Coronavirus (PCR) Not Detected (Not Detectd) - Radiology Data Radiology results: image reviewed (chest x ray shows no acute process) Disposition Clinical Impression: Chest wall pain Disposition: HOME SELF-CARE Condition: Stable Instructions (If sedation given, give patient instructions): Chest Wall Pain (ED) Additional Instructions: Discontinue smoking. Please follow-up with primary care physician in the next day for recheck. Return for increased pain, difficulty breathing, worsening or changing symptoms or other concerns. Is patient prescribed a controlled substance at d/c from ED?: No Referrals: Jacinto Craig DO [Primary Care Provider] - 1-2 days Time of Disposition: 09:42
[2020-06-02 07:54] LABS: Basophils % (A) 1 %; Eosinophils # (A) 0.4 k/uL (0-0.7); Eosinophils % (A) 5 %; HCT 42.9 % (34.0-46.0); HGB 15.1 gm/dL (11.4-16.0); Lymphocytes # (A) 1.4 k/uL (1.0-4.8); Lymphocytes % (A) 20 %; MCH 31.5 pg (25.0-35.0); MCHC 35.2 g/dL (31.0-37.0); MCV 89.5 fL (80.0-100.0); Mean Platelet Volume 7.1; Monocytes # (A) 0.6 k/uL (0-1.0); Monocytes % (A) 8 %; Neutrophils # (A) 4.7 k/uL (1.3-7.7); Neutrophils % (A) 65 %; Platelet Count 246 k/uL (150-450); RDW 12.6 % (11.5-15.5); WBC 7.2 k/uL (3.8-10.6)
[2020-06-02 08:17] LABS: ALT 12 U/L (4-34); AST 19 U/L (14-36); African American GFR (CKD) >90 (>60 ml/min/1.73 sqM); Albumin 4.1 g/dL (3.5-5.0); Alkaline Phosphatase 72 U/L (38-126); Anion Gap 5 mmol/L; Blood Urea Nitrogen 10 mg/dL (7-17); Calcium 8.9 mg/dL (8.4-10.2); Carbon Dioxide 24 mmol/L (22-30); Chloride 109 mmol/L (98-107); Glucose 95 mg/dL (74-99); Non-African American GFR(CKD) >90 (>60 ml/min/1.73 sqM); Sodium 138 mmol/L (137-145); Total Bilirubin 0.4 mg/dL (0.2-1.3); Total Protein 6.6 g/dL (6.3-8.2)
[2020-06-02 08:26] LABS: D-Dimer 0.18 mg/L FEU (<0.60); INR 0.9 (<1.2); Partial Thromboplastin Time 25.5 sec (22.0-30.0); Prothrombin Time 10.1 sec (9.0-12.0)
--- NOTE | 2020-06-02 08:33 | XR ---
EXAMINATION TYPE: XR chest 2V DATE OF EXAM: 06/02/2020 COMPARISON: Chest x-ray 12/21/2013 HISTORY: Chest pain TECHNIQUE: Frontal and lateral views of the chest are obtained. FINDINGS: There is no focal air space opacity, pleural effusion, or pneumothorax seen. The cardiac silhouette size is within normal limits. There are overlying artifacts present. Mild elevation of rig ht hemidiaphragm is stable. The osseous structures are intact. IMPRESSION: No acute cardiopulmonary process.
[2020-06-02] MEDS ORDERED: KETOROLAC 15 MG/ML 1 ML VIAL IVP STA (08:44)
[2020-06-02 09:50] VITALS: BP 122/76; PULSE 68; RESP 16; TEMP 98.1
== END 2020-06-02 09:49 | disposition home or self-care (01) ==
LOC: EC 06:53
DX: R07.89 Other chest pain (principal); R11.0 Nausea; Z20.822 Contact with and (suspected) exposure to COVID-19; F17.200 Nicotine dependence, unspecified, uncomplicated
CPT/HCPCS: 36415; 85379; 80053; 83735; 84484; 85025; 85610; 85730; 87635; 71046; 99285; 96374; J1885; 93005

== ENCOUNTER 2020-12-03 14:14 | Emergency (ER) | payer BC, OTHER ==
[2020-12-03 14:18] VITALS: RESP 18; TEMP 98.2
[2020-12-03] MEDS ORDERED: ALBUTEROL HFA INHALER INHALATION STA (14:50)
--- NOTE | 2020-12-03 14:55 | ED ---
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 She had fever yesterday none today no sweats no chest pain. MD Complaint: shortness of breath, cough - Related Data Previous Rx's Medication Instructions Recorded Azithromycin [Zithromax Z-pack (6 0 mg PO DIRECTED 5 Days #6 tab 12/03/20 tabs)] methylPREDNISolone Dose Pack 4 mg PO DIRECTED #21 tab 12/03/20 [Medrol Dose Pack] Allergies Allergy/AdvReac Type Severity Reaction Status Date / Time No Known Allergies Allergy Verified 12/03/20 15:39 Review of Systems ROS Statement: Those systems with pertinent positive or pertinent negative responses have been documented in the HPI. ROS Other: All systems not noted in ROS Statement are negative. Past Medical History Past Medical History: Asthma History of Any Multi-Drug Resistant Organisms: None Reported Past Surgical History: No Surgical Hx Reported Past Psychological History: Anxiety, Depression Smoking Status: Current every day smoker Past Alcohol Use History: Rare Past Drug Use History: Marijuana General Exam - General Exam Comments Initial Comments: Is a well-developed well-nourished awake alert oriented x 3 female Limitations: no limitations General appearance: alert, anxious Head exam: Present: atraumatic, normocephalic, normal inspection Eye exam: Present: normal appearance, PERRL, EOMI. Absent: scleral icterus, conjunctival injection, periorbital swelling ENT exam: Present: normal exam, mucous membranes moist Neck exam: Present: normal inspection, full ROM. Absent: tenderness, meni ngismus, lymphadenopathy Respiratory exam: Present: decreased breath sounds. Absent: respiratory distress, wheezes (Especially right lower lobe), rales, rhonchi, stridor Cardiovascular Exam: Present: regular rate, normal rhythm, normal heart sounds. Absent: systolic murmur, diastolic murmur, rubs, gallop, clicks GI/Abdominal exam: Present: soft, normal bowel sounds. Absent: distended, tenderness, guarding, rebound, rigid Extremities exam: Present: normal inspection, full ROM, normal capillary refill. Absent: tenderness, pedal edema, joint swelling, calf tenderness Back exam: Present: normal inspection Neurological exam: Present: alert, oriented X3, CN II-XII intact Psychiatric exam: Present: normal affect, normal mood Skin exam: Present: warm, dry, intact, normal color. Absent: rash Course Vital Signs 12/03/20 12/03/20 14:16 14:50 Temperature 98.2 F Pulse Rate 94 Respiratory 18 18 Rate Blood Pressure 129/87 O2 Sat by Pulse 98 Oximetry Medical Decision Making - Medical Decision Making I did discuss findings with the patient the presentation is consistent with asthmatic bronchitis patient will be discharged on appropriate medication she did receive doses prior to discharge. She does have an inhaler at home. We did discuss smoking cessation - Lab Data Result diagrams: 12/03/20 15:08 12/03/20 15:08 Lab Results 12/03/20 12/03/20 12/03/20 Range/Units 15:08 15:08 15:08 WBC 11.5 H (3.8-10.6) k/uL RBC 5.04 (3.80-5.40) m/uL Hgb 15.8 (11.4-16.0) gm/dL Hct 45.6 (34.0-46.0) % MCV 90.4 (80.0-100.0) fL MCH 31.4 (25.0-35.0) pg MCHC 34.8 (31.0-37.0) g/dL RDW 12.3 (11.5-15.5) % Plt Count 312 (150-450) k/uL MPV 7.0 Neutrophils % 86 % Lymphocytes % 7 % Monocytes % 6 % Eosinophils % 0 % Basophils % 0 % Neutrophils # 9.9 H (1.3-7.7) k/uL Lymphocytes # 0.8 L (1.0-4.8) k/uL Monocytes # 0.7 (0-1.0) k/uL Eosinophils # 0.0 (0-0.7) k/uL Basophils # 0.0 (0-0.2) k/uL PT 10.8 (9.0-12.0) sec INR 1.0 (<1.2) APTT 26.0 (22.0-30.0) sec Sodium 139 (137-145) mmol/L Potassium 4.2 (3.5-5.1) mmol/L Chloride 105 (98-107) mmol/L Carbon Dioxide 24 (22-30) mmol/L Anion Gap 10 mmol/L BUN 12 (7-17) mg/dL Creatinine 0.50 L (0.52-1.04) mg/dL Est GFR (CKD-EPI)AfAm >90 (>60 ml/min/1.73 sqM) Est GFR (CKD-EPI)NonAf >90 (>60 ml/min/1.73 sqM) Glucose 101 H (74-99) mg/dL Plasma Lactic Acid Gabriel (0.7-2.0) mmol/L Calcium 9.9 (8.4-10.2) mg/dL Magnesium 1.8 (1.6-2.3) mg/dL Total Bilirubin 0.5 (0.2-1.3) mg/dL AST 26 (14-36) U/L ALT 25 (4-34) U/L Alkaline Phosphatase 94 (38-126) U/L Troponin I (0.000-0.034) ng/mL NT-Pro-B Natriuret Pep pg/mL Total Protein 7.8 (6.3-8.2) g/dL Albumin 4.8 (3.5-5.0) g/dL Coronavirus (PCR) (Not Detectd) 12/03/20 12/03/20 12/03/20 Range/Units 15:08 15:08 15:08 WBC (3.8-10.6) k/uL RBC (3.80-5.40) m/uL Hgb (11.4-16.0) gm/dL Hct (34.0-46.0) % MCV (80.0-100.0) fL MCH (25.0-35.0) pg MCHC (31.0-37.0) g/dL RDW (11.5-15.5) % Plt Count (150-450) k/uL MPV Neutrophils % % Lymphocytes % % Monocytes % % Eosinophils % % Basophils % % Neutrophils # (1.3-7.7) k/uL Lymphocytes # (1.0-4.8) k/uL Monocytes # (0-1.0) k/uL Eosinophils # (0-0.7) k/uL Basophils # (0-0.2) k/uL PT (9.0-12.0) sec INR (<1.2) APTT (22.0-30.0) sec Sodium (137-145) mmol/L Potassium (3.5-5.1) mmol/L Chloride (98-107) mmol/L Carbon Dioxide (22-30) mmol/L Anion Gap mmol/L BUN (7-17) mg/dL Creatinine (0.52-1.04) mg/dL Est GFR (CKD-EPI)AfAm (>60 ml/min/1.73 sqM) Est GFR (CKD-EPI)NonAf (>60 ml/min/1.73 sqM) Glucose (74-99) mg/dL Plasma Lactic Acid Gabriel 0.9 (0.7-2.0) mmol/L Calcium (8.4-10.2) mg/dL Magnesium (1.6-2.3) mg/dL Total Bilirubin (0.2-1.3) mg/dL AST (14-36) U/L ALT (4-34) U/L Alkaline Phosphatase (38-126) U/L Troponin I <0.012 (0.000-0.034) ng/mL NT-Pro-B Natriuret Pep 106 pg/mL Total Protein (6.3-8.2) g/dL Albumin (3.5-5.0) g/dL Coronavirus (PCR) (Not Detectd) 12/03/20 Range/Units 15:08 WBC (3.8-10.6) k/uL RBC (3.80-5.40) m/uL Hgb (11.4-16.0) gm/dL Hct (34.0-46.0) % MCV (80.0-100.0) fL MCH (25.0-35.0) pg MCHC (31.0-37.0) g/dL RDW (11.5-15.5) % Plt Count (150-450) k/uL MPV Neutrophils % % Lymphocytes % % Monocytes % % Eosinophils % % Basophils % % Neutrophils # (1.3-7.7) k/uL Lymphocytes # (1.0-4.8) k/uL Monocytes # (0-1.0) k/uL Eosinophils # (0-0.7) k/uL Basophils # (0-0.2) k/uL PT (9.0-12.0) sec INR (<1.2) APTT (22.0-30.0) sec Sodium (137-145) mmol/L Potassium (3.5-5.1) mmol/L Chloride (98-107) mmol/L Carbon Dioxide (22-30) mmol/L Anion Gap mmol/L BUN (7-17) mg/dL Creatinine (0.52-1.04) mg/dL Est GFR (CKD-EPI)AfAm (>60 ml/min/1.73 sqM) Est GFR (CKD-EPI)NonAf (>60 ml/min/1.73 sqM) Glucose (74-99) mg/dL Plasma Lactic Acid Gabriel (0.7-2.0) mmol/L Calcium (8.4-10.2) mg/dL Magnesium (1.6-2.3) mg/dL Total Bilirubin (0.2-1.3) mg/dL AST (14-36) U/L ALT (4-34) U/L Alkaline Phosphatase (38-126) U/L Troponin I (0.000-0.034) ng/mL NT-Pro-B Natriuret Pep pg/mL Total Protein (6.3-8.2) g/dL Albumin (3.5-5.0) g/dL Coronavirus (PCR) Not Detected (Not Detectd) - EKG Data -: EKG Interpreted by Me EKG shows normal: sinus rhythm EKG Comments: Sinus rhythm with sinus arrhythmia rate 76. Interval 146 QRS duration 86 QT since QTC 380/427 possible left atrial enlargement nonspecific anterior configuration - Radiology Data Radiology results: image reviewed Interpreted by me: Imaging reviewed no acute findings Disposition Clinical Impression: Asthmatic bronchitis Disposition: HOME SELF-CARE Condition: Good Instructions (If sedation given, give patient instructions): Acute Bronchitis (ED), Bronchospasm (ED), Asthma (ED) Additional Instructions: Note for work Prescriptions: methylPREDNISolone Dose Pack [Medrol Dose Pack] 4 mg PO DIRECTED #21 tab Azithromycin [Zithromax Z-pack (6 tabs)] 0 mg PO DIRECTED 5 Days #6 tab Is patient prescribed a controlled substance at d/c from ED?: No Referrals: Jacinto Craig DO [Primary Care Provider] - 1-2 days
[2020-12-03 15:19] LABS: Basophils % (A) 0 %; Eosinophils % (A) 0 %; HCT 45.6 % (34.0-46.0); HGB 15.8 gm/dL (11.4-16.0); Lymphocytes # (A) 0.8 k/uL (1.0-4.8); Lymphocytes % (A) 7 %; MCH 31.4 pg (25.0-35.0); MCHC 34.8 g/dL (31.0-37.0); MCV 90.4 fL (80.0-100.0); Monocytes # (A) 0.7 k/uL (0-1.0); Monocytes % (A) 6 %; Neutrophils # (A) 9.9 k/uL (1.3-7.7); Neutrophils % (A) 86 %; Platelet Count 312 k/uL (150-450); RBC 5.04 m/uL (3.80-5.40); RDW 12.3 % (11.5-15.5); WBC 11.5 k/uL (3.8-10.6)
--- NOTE | 2020-12-03 15:27 | XR ---
EXAMINATION TYPE: XR chest 2V DATE OF EXAM: 12/03/2020 COMPARISON: 06/02/2020 INDICATION: Difficulty breathing TECHNIQUE: Frontal and lateral views of the chest are obtained. FINDINGS: The heart size is normal. The pulmonary vasculature is normal. The lungs are clear. IMPRESSION: 1. No acute pulmonary process.
[2020-12-03 15:28] LABS: Prothrombin Time 10.8 sec (9.0-12.0)
[2020-12-03 15:29] LABS: Carbon Dioxide 24 mmol/L (22-30)
[2020-12-03 15:33] LABS: ALT 25 U/L (4-34); AST 26 U/L (14-36); African American GFR (CKD) >90 (>60 ml/min/1.73 sqM); Albumin 4.8 g/dL (3.5-5.0); Alkaline Phosphatase 94 U/L (38-126); Anion Gap 10 mmol/L; Blood Urea Nitrogen 12 mg/dL (7-17); Calcium 9.9 mg/dL (8.4-10.2); Chloride 105 mmol/L (98-107); Glucose 101 mg/dL (74-99); Magnesium 1.8 mg/dL (1.6-2.3); Non-African American GFR(CKD) >90 (>60 ml/min/1.73 sqM); Potassium 4.2 mmol/L (3.5-5.1); Sodium 139 mmol/L (137-145); Total Bilirubin 0.5 mg/dL (0.2-1.3); Total Protein 7.8 g/dL (6.3-8.2)
[2020-12-03] MEDS ORDERED: AZITHROMYCIN 500 MG TAB PO STA (16:16)
[2020-12-03] MEDS ORDERED: predniSONE 50 MG TAB PO STA (16:16)
[2020-12-03 16:42] VITALS: BP 131/81; PULSE 82
== END 2020-12-03 16:45 | disposition home or self-care (01) ==
LOC: EC 14:14
DX: J45.909 Unspecified asthma, uncomplicated (principal); F17.210 Nicotine dependence, cigarettes, uncomplicated; F41.9 Anxiety disorder, unspecified; F32.9 Major depressive disorder, single episode, unspecified; F12.90 Cannabis use, unspecified, uncomplicated; Z72.89 Other problems related to lifestyle
CPT/HCPCS: 36415; 94640; 93005; 83880; 80053; 83605; 83735; 84484; 85025; 85610; 85730; 87040; 87635; 71046; 99285; J7512; 96372; 99283

== ENCOUNTER 2020-12-07 15:40 | Emergency (ER) | payer SELFPAY ==
[2020-12-07 15:58] VITALS: BP 135/74; RESP 20; TEMP 99.4
[2020-12-07] MEDS ORDERED: IPRATROPIUM-ALBUTEROL 3 ML NEB INHALATION STA (16:11)
--- NOTE | 2020-12-07 16:14 | ED ---
General Adult HPI - General Chief complaint: Upper Respiratory Infection Stated complaint: revisit/sob/cough/no smell and taste Time Seen by Provider: 12/07/20 16:04 Source: patient, RN notes reviewed, old records reviewed Mode of arrival: ambulatory Limitations: no limitations - History of Present Illness Initial comments: This is a 30-year-old well-appearing female that presents to the emergency room, alert and oriented 4, with complaints of difficulty in breathing. Patient states that she was seen on December 03 here diagnosed with bronchitis and put on a Z-Hitesh with a Medrol Dosepak. She states that she is not feeling any better. She continues to have low-grade fevers and wheezing. She has been using her albuterol inhaler. She is a smoker. She denies any drug use, recent surgeries or any other medications on a daily basis. She states that she does not have insurance and does not have a primary care doctor is why she came back to the emergency room. Onset/Timin,604 -: days(s) (5) Location: chest Radiation: non-radiation Severity scale (1-10): 5 Quality: constant Consistency: constant Improves with: none Worsens with: other (cough) Associated Symptoms: cough, fever/chills Treatments Prior to Arrival: other (medrol dose pack and z-pack) - Related Data Previous Rx's Medication Instructions Recorded Azithromycin [Zithromax Z-pack (6 0 mg PO DIRECTED 5 Days #6 tab 12/03/20 tabs)] methylPREDNISolone Dose Pack 4 mg PO DIRECTED #21 tab 12/03/20 [Medrol Dose Pack] predniSONE 50 mg PO DAILY #5 tab 12/07/20 Allergies Allergy/AdvReac Type Severity Reaction Status Date / Time No Known Allergies Allergy Verified 12/07/20 15:58 Review of Systems ROS Statement: Those systems with pertinent positive or pertinent negative responses have been documented in the HPI. ROS Other: All systems not noted in ROS Statement are negative. Past Medical History Past Medical History: Asthma History of Any Multi-Drug Resistant Organisms: None Reported Past Surgical History: No Surgical Hx Reported Past Psychological History: Anxiety, Depression Smoking Status: Current every day smoker Past Alcohol Use History: Rare Past Drug Use History: Marijuana General Exam Limitations: no limitations General appearance: alert, in no apparent distress Head exam: Present: atraumatic, normocephalic, normal inspection Eye exam: Present: normal appearance Respiratory exam: Present: wheezes (Inspiratory and expiratory bilateral). Absent: chest wall tenderness Cardiovascular Exam: Present: regular rate, normal rhythm, normal heart sounds. Absent: systolic murmur, diastolic murmur, rubs, gallop, clicks Neurological exam: Present: alert, oriented X3 Psychiatric exam: Present: normal affect, normal mood Skin exam: Present: warm, dry, intact, normal color. Absent: rash Course Vital Signs 12/07/20 12/07/20 12/07/20 15:54 16:43 16:52 Temperature 99.4 F Pulse Rate 91 78 82 Respiratory 20 Rate Blood Pressure 135/74 O2 Sat by Pulse 96 Oximetry Medical Decision Making - Medical Decision Making Patient is currently being treated with Z-Hitesh for bronchitis. I did give her a DuoNeb treatment in the emergency room which resulted lungs clear to auscultation. I did change her Medrol Dosepak to prednisone 50 mg once a day for next 5 days. She was instructed to stop the Medrol Dosepak. She was also advised to continue her albuterol every four hours as needed. She was also encouraged to stop smoking. She was given a referral to a primary care doctor and directed to return to the emergency room with any new or worsening symptoms. She is agreeable to this plan of care. Case discussed with Dr. Richard. Disposition Clinical Impression: Asthma Disposition: HOME SELF-CARE Condition: Good Instructions (If sedation given, give patient instructions): Asthma (ED), Upper Respiratory Infection (ED) Additional Instructions: Continue taking your Z-Hitesh antibiotics. Stop taking the Medrol Dosepak and start taking the prednisone as prescribed once a day. Continue using your Albulterol inhaler every 4 hours as needed. Return to the emergency room with any new or worsening symptoms. Prescriptions: predniSONE 50 mg PO DAILY #5 tab Is patient prescribed a controlled substance at d/c from ED?: No Referrals: Jacinto Craig DO [Primary Care Provider] - 1-2 days Time of Disposition: 17:22
[2020-12-07 16:52] VITALS: PULSE 82
== END 2020-12-07 17:49 | disposition home or self-care (01) ==
LOC: EC 15:40
DX: J45.909 Unspecified asthma, uncomplicated (principal); F41.9 Anxiety disorder, unspecified; F32.9 Major depressive disorder, single episode, unspecified; F17.200 Nicotine dependence, unspecified, uncomplicated; F12.90 Cannabis use, unspecified, uncomplicated
CPT/HCPCS: 94640; 99284

== ENCOUNTER 2021-01-25 17:09 | Emergency (ER) | payer OTHER ==
[2021-01-25 17:33] VITALS: BP 136/82; PULSE 88; RESP 20; TEMP 99
--- NOTE | 2021-01-25 17:45 | ED ---
Upper Extremity HPI - General Chief Complaint: Extremity Injury, Upper Stated Complaint: [facility]-hand injury Time Seen by Provider: 01/25/21 17:38 Source: patient, RN notes reviewed Mode of arrival: ambulatory Limitations: no limitations - History of Present Illness Initial Comments: This a 30-year-old female presents emergency from chief complaint of left hand ring finger injury. Patient states that she was at work states that he came down crushing her finger. She has a small abrasion her tetanus is up-to-date no paresthesias this pain with movement. - Related Data Previous Rx's Medication Instructions Recorded Azithromycin [Zithromax Z-pack (6 0 mg PO DIRECTED 5 Days #6 tab 12/03/20 tabs)] methylPREDNISolone Dose Pack 4 mg PO DIRECTED #21 tab 12/03/20 [Medrol Dose Pack] predniSONE 50 mg PO DAILY #5 tab 12/07/20 Allergies Allergy/AdvReac Type Severity Reaction Status Date / Time No Known Allergies Allergy Verified 01/25/21 17:33 Review of Systems ROS Statement: Those systems with pertinent positive or pertinent negative responses have been documented in the HPI. ROS Other: All systems not noted in ROS Statement are negative. Past Medical History Past Medical History: Asthma History of Any Multi-Drug Resistant Organisms: None Reported Past Surgical History: No Surgical Hx Reported Past Psychological History: Anxiety, Depression Smoking Status: Current every day smoker Past Alcohol Use History: Rare Past Drug Use History: Marijuana General Exam Limitations: no limitations General appearance: alert, in no apparent distress Head exam: Present: atraumatic, normocephalic, normal inspection Respiratory exam: Present: normal lung sounds bilaterally. Absent: respiratory distress, wheezes, rales, rhonchi, stridor Cardiovascular Exam: Present: regular rate, normal rhythm, normal heart sounds. Absent: systolic murmur, diastolic murmur, rubs, gallop, clicks Extremities exam: Present: other (Left hand fourth digit there is a small abrasion on the dorsal surface, full range of motion mild tenderness throughout the digit) Course Vital Signs 01/25/21 17:31 Temperature 99 F Pulse Rate 88 Respiratory 20 Rate Blood Pressure 136/82 O2 Sat by Pulse 98 Oximetry Medical Decision Making - Medical Decision Making X-rays negative for acute fracture. Disposition Clinical Impression: Crushing injury of finger of left hand, Finger contusion Disposition: HOME SELF-CARE Condition: Stable Instructions (If sedation given, give patient instructions): Contusion in Adults (ED) Additional Instructions: Please return to the Emergency Department if symptoms worsen or any other concerns. Is patient prescribed a controlled substance at d/c from ED?: No Referrals: Jacinto Craig DO [Primary Care Provider] - 1-2 days Time of Disposition: 19:11
--- NOTE | 2021-01-25 18:57 | XR ---
EXAMINATION TYPE: XR hand complete LT DATE OF EXAM: 01/25/2021 COMPARISON: NONE HISTORY: Pain TECHNIQUE: 3 views FINDINGS: Metacarpals are intact. I see no fracture nor dislocation. Joint spaces are normal. The rin g finger appears intact. IMPRESSION: Normal left hand exam.
== END 2021-01-25 19:19 | disposition home or self-care (01) ==
LOC: EC 17:09
DX: S67.195A Crushing injury of left ring finger, initial encounter (principal); S60.042A Contusion of left ring finger without damage to nail, initial encounter; J45.909 Unspecified asthma, uncomplicated; F41.9 Anxiety disorder, unspecified; F32.A Depression, unspecified; F17.200 Nicotine dependence, unspecified, uncomplicated; F12.90 Cannabis use, unspecified, uncomplicated; W23.0XXA Caught, crushed, jammed, or pinched between moving objects, initial encounter
CPT/HCPCS: 99284

== ENCOUNTER 2021-01-31 18:00 | Emergency (ER) | payer BC ==
[2021-01-31 18:59] VITALS: BP 134/78; PULSE 93; RESP 18; TEMP 98.1
[2021-01-31] MEDS ORDERED: AMOXIC-POT CLAV 875MG STARTER PACK 2 TAB BTL PO STA (19:12)
[2021-01-31] MEDS ORDERED: ACET/COD 300 MG/30 MG STARTER PACK 6 TAB BTL PO STA (19:12)
[2021-01-31] MEDS ORDERED: BUPIVACAINE (PF) 0.5% 30 ML VIAL SQ STA (19:12)
--- NOTE | 2021-01-31 19:18 | ED ---
General Adult HPI - General Chief complaint: Dental/Oral Stated complaint: dental pain, jaw problem Time Seen by Provider: 01/31/21 19:03 Source: patient Mode of arrival: ambulatory Limitations: no limitations - History of Present Illness Initial comments: 30 year-old female patient presents to the emergency department for evaluation of right upper dental pain. States it has been hurting for the last 3-4 days. She does have a dentist appointment 03/04/21. Has been taking tylenol and motrin without relief. She states she did have a fever the other day. Denies vomiting. Denies trismus or difficulty swallowing. Denies any swelling in the mouth. Denies any sublingual tenderness or swelling. - Related Data Previous Rx's Medication Instructions Recorded Azithromycin [Zithromax Z-pack (6 0 mg PO DIRECTED 5 Days #6 tab 12/03/20 tabs)] methylPREDNISolone Dose Pack 4 mg PO DIRECTED #21 tab 12/03/20 [Medrol Dose Pack] predniSONE 50 mg PO DAILY #5 tab 12/07/20 Acetaminophen-Codeine 300-30mg 1 tab PO Q6H PRN #12 tablet 01/31/21 [Tylenol #3] Amoxic-Pot Clav 875-125Mg 1 tab PO Q12HR #20 tablet 01/31/21 [Augmentin 875-125] Allergies Allergy/AdvReac Type Severity Reaction Status Date / Time No Known Allergies Allergy Verified 01/31/21 18:59 Review of Systems ROS Statement: Those systems with pertinent positive or pertinent negative responses have been documented in the HPI. ROS Other: All systems not noted in ROS Statement are negative. Past Medical History Past Medical History: Asthma History of Any Multi-Drug Resistant Organisms: None Reported Past Surgical History: No Surgical Hx Reported Past Psychological History: Anxiety, Depression Smoking Status: Current every day smoker Past Alcohol Use History: Rare Past Drug Use History: Marijuana General Exam Limitations: no limitations General appearance: alert, in no apparent distress, other (This is a well- developed, well-nourished adult female in no acute distress.) ENT exam: Present: normal oropharynx, mucous membranes moist, other (Cracked tooth #2, no surrounding erythema or swelling. No evidence for drainable abscess.) Neck exam: Present: normal inspection. Absent: tenderness, meningismus, lymphadenopathy Respiratory exam: Present: normal lung sounds bilaterally. Absent: respiratory distress, wheezes, rales, rhonchi, stridor Cardiovascular Exam: Present: regular rate, normal rhythm, normal heart sounds. Absent: systolic murmur, diastolic murmur, rubs, gallop, clicks Neurological exam: Present: alert, oriented X3, CN II-XII intact Psychiatric exam: Present: normal affect, normal mood Skin exam: Present: warm, dry, intact, normal color. Absent: rash Course Vital Signs 01/31/21 18:57 Temperature 98.1 F Pulse Rate 93 Respiratory 18 Rate Blood Pressure 134/78 O2 Sat by Pulse 98 Oximetry Medical Decision Making - Medical Decision Making 30 year-old female patient presents for evaluation of right upper dental pain. Physical examination did reveal cracked tooth #2. No evidence for drainable abscess. She was given intraoral nerve block. She was given antibiotics and pain medication. She will be discharged to follow up with dentistry as soon as possible. Return parameters are discussed in detail. She verbalized understanding and agrees with this plan. My attending is Dr. Lopez. Disposition Clinical Impression: Pain, dental Disposition: HOME SELF-CARE Condition: Good Instructions (If sedation given, give patient instructions): Toothache (ED) Additional Instructions: Follow up with the dentist as soon as possible. Take medications as directed. Return to the emergency department for any new, worsening, or concerning symptoms. Prescriptions: Amoxic-Pot Clav 875-125Mg [Augmentin 875-125] 1 tab PO Q12HR #20 tablet Acetaminophen-Codeine 300-30mg [Tylenol #3] 1 tab PO Q6H PRN #12 tablet PRN Reason: Pain Is patient prescribed a controlled substance at d/c from ED?: No Referrals: Jacinto Craig DO [Primary Care Provider] - 1-2 days Time of Disposition: 19:51
== END 2021-01-31 20:06 | disposition home or self-care (01) ==
LOC: EC 18:00
DX: K08.89 Other specified disorders of teeth and supporting structures (principal); J45.909 Unspecified asthma, uncomplicated; F41.9 Anxiety disorder, unspecified; F32.A Depression, unspecified; F17.200 Nicotine dependence, unspecified, uncomplicated; F12.90 Cannabis use, unspecified, uncomplicated
CPT/HCPCS: 64450; 99282